=== PATIENT | female | born 1950 | race Caucasian/White ===

== ENCOUNTER → 2021-11-21 | Outpatient (CLI) | payer MEDICARE, OTHER ==
--- NOTE | 2021-11-23 10:11 | MR ---
EXAMINATION TYPE: MR brain wo con DATE OF EXAM: 11/21/2021 COMPARISON: MRI brain 07/11/2018. HISTORY: Weakness, seizure hx since childhood, covid 2-2021 TECHNIQUE: Multiplanar, multisequence imaging of the brain and brainstem is performed without IV cont rast. FINDINGS: Diffusion weighted images demonstrate no evidence of a recent infarct or other diffusion abnormality. There is mild/moderate ventricular and sulcal prominence. No significant white matter changes. Midline structures demonstrate normal morphology. The craniocervical junction appears within normal limits. Normal vascular flow voids are present. Left vertebral artery redemonstrated larger caliber o r dominant appearance Left globe cortical buckle redemonstrated. Paranasal sinuses grossly clear. IMPRESSION: Luxp-ab-oypthaew diffuse cerebral and cerebellar atrophy redemonstrated. No significant c hange from prior MRI.
== END | disposition home or self-care (01) ==
LOC: RADMRIMAIN 13:19
PROVIDERS: ATTEND Pediatrics
DX: G31.9 Degenerative disease of nervous system, unspecified (principal); Z86.16 Personal history of COVID-19
CPT/HCPCS: 70551

== ENCOUNTER → 2021-12-17 | Outpatient (CLI) | payer MEDICARE, OTHER ==
--- NOTE | 2021-12-18 04:38 | MR ---
EXAMINATION TYPE: MR ankle LT wo con DATE OF EXAM: 12/17/2021 COMPARISON: None HISTORY: Abnormal findings on diagnostic imaging Multiplanar multiecho imaging of the left ankle was performed without contrast. There is thickening and deformity of the distal shaft of the fibula related to old healed fracture. T here is deformity of the distal tibia consistent with old intra-articular fracture. No acute fracture seen. There is minimal subcutaneous edema around the ankle. The Achilles tendon is intact. Medial an d lateral flexor tendons of the ankle are intact. The collateral ligaments are intact. There is narro wing of the ankle joint space. IMPRESSION: There is deformity of the distal tibia and fibula related to old healed fractures. 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 Mild subcutaneous edema around the ankle.
--- NOTE | 2021-12-18 04:41 | MR ---
EXAMINATION TYPE: MR foot LT wo con DATE OF EXAM: 12/17/2021 COMPARISON: None HISTORY: Abnormal findings on diagnostic imaging Multiplanar multiecho imaging of the left foot without contrast. The metatarsals are intact there is mild subcutaneous edema around the foot. The toes appear intact. I see no bony destructive process. Tarsal bones are intact. No evidence of an acute fracture. There i s some narrowing of the ankle joint space with spurring. There is mild ankle joint effusion. IMPRESSION: No acute bony abnormality. Posttraumatic osteoarthritis in the ankle joint with small ankle joint eff usion. Mild subcutaneous edema around the forefoot.
== END | disposition home or self-care (01) ==
LOC: RADMRIMAIN 11:34
PROVIDERS: ATTEND Physician Assistant
DX: M19.172 Post-traumatic osteoarthritis, left ankle and foot (principal)

== ENCOUNTER → 2021-12-23 | Outpatient (CLI) | payer MEDICARE, OTHER ==
--- NOTE | 2021-12-23 16:38 | MR ---
MRI left tibia and fibula HISTORY: Previous abnormal exam, R 93.6 Multiplanar multisequence imaging obtained through the legs with attention to the left tibia and fibu la Correlation to MRI left ankle 12/17/2021 The remodeling at the ankle joint is again seen consistent with remote trauma and secondary osteoarth ritis. Bone marrow signal is maintained. Muscular atrophy is present bilaterally. No evident acute fr acture or dislocation. IMPRESSION: Remote posttraumatic changes
== END | disposition home or self-care (01) ==
LOC: RADMRIMAIN 11:35
PROVIDERS: ATTEND Physician Assistant
DX: R93.6 Abnormal findings on diagnostic imaging of limbs (principal); M62.50 Muscle wasting and atrophy, not elsewhere classified, unspecified site; M19.272 Secondary osteoarthritis, left ankle and foot

== ENCOUNTER → 2022-03-31 | Outpatient (CLI) | payer MEDICARE, OTHER ==
[2022-03-31 14:52] LABS: African American GFR (CKD) >90 (>60 ml/min/1.73 sqM); Blood Urea Nitrogen 14 mg/dL (7-17); Non-African American GFR(CKD) >90 (>60 ml/min/1.73 sqM)
--- NOTE | 2022-03-31 19:49 | CT ---
EXAMINATION TYPE: CT urogram wo/w con CT DLP: 4192.30 mGycm, Automated exposure control for dose reduction was used. DATE OF EXAM: 03/31/2022 4:50 PM COMPARISON: None CLINICAL INDICATION:Female, 71 years old with history of R31.1 Micro hematuria, micro hematuria TECHNIQUE: Urogram with imaging of the abdomen and pelvis. Coronal and sagittal reformats were performed. 2D and 3D reconstructions are performed to assist visualization of the urinary tract on a separate workstat ion. Contrast used:70mL mL of Isovue 300 with IV Contrast, Oral contrast used: None. FINDINGS: GENITOURINARY: RIGHT KIDNEY AND URETER: No calculi. No hydronephrosis or hydroureter. No renal mass or other lesions . No urothelial lesions: no filling defect, dilation, stricture or wall thickening. Distal ureter sub optimally evaluated due to lack of excreted IV contrast LEFT KIDNEY AND URETER: No calculi. No hydronephrosis or hydroureter. No renal mass or other lesions. No urothelial lesions: no filling defect, dilation, stricture or wall thickening. Distal ureter subo ptimally evaluated due to lack of excreted IV contrast URINARY BLADDER: No calculi identified. Suboptimal visualization due to lack of excreted IV contrast. REPRODUCTIVE: Degenerating fibroid with calcification present.. ABDOMEN LIVER: Unremarkable. GALLBLADDER AND BILE DUCTS: Unremarkable PANCREAS: Unremarkable. SPLEEN: Unremarkable. ADRENAL GLANDS: Unremarkable. STOMACH AND BOWEL: Appendix is normal. There is redundant sigmoid colon. No evidence of bowel obstruc tion. Small hiatal hernia is present. PERITONEUM: No evidence of pneumoperitoneum, free fluid, or adenopathy. VASCULATURE: Scattered atherosclerosis of the arterial vasculature. MUSCULOSKELETAL: Multilevel degenerative changes are present throughout the thoracolumbar spine. SOFT TISSUE/ABDOMINAL WALL: No significant abnormality. LOWER CHEST: Multiple calcifications are seen within the breasts bilaterally. There is coronary arter y atherosclerosis as well as aortic valve with the calcifications. Mitral valve annular calcification s are also present. IMPRESSION: 1. No evidence of urolithiasis or renal/urothelial neoplasm. 2. No evidence of renal calculi. 3. Small hiatal hernia. 4. Colonic diverticulosis
== END | disposition home or self-care (01) ==
LOC: RADCTMAIN 14:07 → EEVIPCON 15:00
PROVIDERS: ATTEND Urology
DX: K44.9 Diaphragmatic hernia without obstruction or gangrene (principal); K57.30 Diverticulosis of large intestine without perforation or abscess without bleeding
CPT/HCPCS: 82565; 84520; 74178; 36415; 74400; Q9967

== ENCOUNTER 2022-08-05 08:17 | Day surgery (SDC) | payer MEDICARE, OTHER ==
[2022-08-04 10:02] VITALS: BMI 33.6
--- NOTE | 2022-08-04 13:56 | P.GSHP ---
History of Present Illness H&P Date: 08/04/22 71 yo female, mentally handicapped who has peristent dysuri and hematuria. SHe comes for a cysto with retrograde pyeograms. Her ct scan was nl - Review of Systems ROS unobtainable: Reports: due to mental status Past Medical History Past Medical History: GERD/Reflux, Osteoarthritis (OA), Seizure Disorder Additional Past Medical History / Comment(s): last seizure 07/16/2022., transfers with gait belt and 2 person assist., wears brace right foot., incontinent of urine., red spot under left eye., assist with food set-up., current UTI., resides in her own home with 24 hour care., pt has legal guardian- Claire Painting (sister # [phone]) History of Any Multi-Drug Resistant Organisms: None Reported Past Surgical History: No Surgical Hx Reported Past Anesthesia/Blood Transfusion Reactions: Family History of Problems w/ Anesthesia Additional Past Anesthesia/Blood Transfusion Reaction / Comment(s): sister and her sisters daughter have "extreme" difficulty waking up after receiving morphine. pt has never received anesthesia per sister. Past Psychological History: Depression Smoking Status: Never smoker Past Alcohol Use History: None Reported Past Drug Use History: None Reported - Past Family History Mother Additional Family Medical History / Comment(s): MOther of complications from colon polyp removal Father Family Medical History: Chest Pain / Angina, Diabetes Mellitus, Hyperlipidemia, Myocardial Infarction ([place]) Medications and Allergies Home Medications Medication Instructions Recorded Confirmed Type Aspirin EC [Ecotrin Low Dose] 81 mg PO DAILY 07/10/18 08/04/22 History Cetirizine HCl [Zyrtec] 10 mg PO HS 07/10/18 08/04/22 History Docusate [Colace] 100 mg PO HS 07/10/18 08/04/22 History Eslicarbazepine Acetate [Aptiom] 300 mg PO DAILY 07/10/18 08/04/22 History Sodium Chloride Tab 1 gm PO HS 07/10/18 08/04/22 History lamoTRIgine [LaMICtal] 25 mg PO BID 07/10/18 08/04/22 History lamoTRIgine [LaMICtal] 200 mg PO BID 07/10/18 08/04/22 History polyethylene glycoL 3350 [Miralax] 17 gm PO Q72H 07/10/18 08/04/22 History Cephalexin [Keflex] 500 mg PO Q12HR 08/04/22 08/04/22 History FLUoxetine HCL [PROzac] 10 mg PO DAILY 08/04/22 08/04/22 History Latanoprost [Latanoprost 0.005%] 1 drop BOTH EYES HS 08/04/22 08/04/22 History Multivitamins, Thera [Multivitamin 1 tab PO DAILY 08/04/22 08/04/22 History (formulary)] Omeprazole [PriLOSEC] 20 mg PO AC-BRKFST 08/04/22 08/04/22 History levETIRAcetam [Keppra] 1,500 mg PO BID 08/04/22 08/04/22 History levETIRAcetam [Keppra] 250 mg PO BID 08/04/22 08/04/22 History Allergies Allergy/AdvReac Type Severity Reaction Status Date / Time lacosamide [From Vimpat] Allergy Unknown Verified 08/04/22 09:36 phenytoin [From Dilantin] Allergy Unknown Verified 08/04/22 09:36 sulfamethoxazole Allergy Unknown Verified 08/04/22 09:36 [From Bactrim] trimethoprim [From Bactrim] Allergy Unknown Verified 08/04/22 09:36 Results - Imaging CT scan - abdomen: report reviewed, image reviewed CT scan - pelvis: report reviewed, image reviewed Assessment and Plan Assessment: Impression; persistent dysuria with intermittent hematuria. Plan cysto with bilateral retrograde pyelograms.
[~2022-08-05 08:17] MED LIST: AMPICILLIN 1,000 MG in SODIUM CHLORIDE 0.9% 50 ML IVPB PRN; DEXAMETHASONE SOD PHOSPHATE 4 MG/ML 1 ML VIAL IV ONE; GENTAMICIN 100 MG in SODIUM CHLORIDE 0.9% 100 ML IVPB PRN; HYDROmorphone 0.5 MG/0.5 ML SYRINGE IVP PRN; LACTATED RINGERS 1,000 ML IV SCH; MIDAZOLAM 2 MG/2 ML VIAL IV PRN; ONDANSETRON 4 MG/2 ML VIAL IVP ONE
[2022-08-05 09:01] LABS: Glucose,Whole Blood 107 mg/dL (70-110)
[2022-08-05] MEDS ORDERED: MIDAZOLAM 2 MG/2 ML VIAL ONE (10:35)
[2022-08-05] MEDS ORDERED: PROPOFOL 10 MG/ML 20 ML VIAL IV ONE (10:35)
[2022-08-05] MEDS ORDERED: fentaNYL (PF) 50 MCG/ML 2 ML AMP ONE (10:35)
[2022-08-05] MEDS ORDERED: IOPAMIDOL-370 50ML BTL IRRIGATION ONE ×2 (10:38→11:00)
--- NOTE | 2022-08-05 11:15 | P.OP ---
Date of Procedure: 08/05/22 Preoperative Diagnosis: Chronic dysuria and hematuria Postoperative Diagnosis: Same, chronic cystitis Procedure(s) Performed: Cystoscopy with bilateral retrograde pyelograms Anesthesia: MAC Surgeon: Michael Pete Estimated Blood Loss (ml): 0 Pathology: none sent Condition: stable Disposition: PACU Indications for Procedure: Patient is 71. She is mentally handicapped and long care facility. She has chronic dysuria according to the extended care facility staff. She has had re current infections. She declined cystoscopy in the office. She comes for cystoscopy retrograde pyelograms. Computed tomography scan is normal Description of Procedure: Patient brought to the operating suite. She is given IV sedation. She's given previous antibiotics. She is prepped and draped sterilely. Cystoscopy Foroblique lens and 21-Cypriot sheath identifies a normal urethra. The bladder wall shows chronic cystitis cystica. There is no tumor or stone. Retrograde pyelograms performed bilaterally with a cone-tipped catheter and Isovue-M 302. The ureters of normal course and caliber without filling defect electing system abnormality or extrinsic compression. The draining nicely. The bladder strain the patient's awake and returned recovery in good condition Impression dysuria secondary to chronic cystitis. The plan is to place her on trimethoprim 100 mg daily for at least 6 weeks to see if this helps her out."
--- NOTE | 2022-08-05 11:24 | FL ---
EXAMINATION TYPE: FL guidance operating room DATE OF EXAM: 08/05/2022 HISTORY: Fluoroscopy time 30 seconds of fluoroscopy provided. IMPRESSION: 1. Fluoroscopy time.
[2022-08-05 11:38] VITALS: TEMP 97
[2022-08-05 12:53] VITALS: BP 122/76; RESP 18
[2022-08-05 13:36] VITALS: PULSE 78
== END 2022-08-05 13:36 ==
LOC: OR 08:17
PROVIDERS: ATTEND Urology
DX: N30.21 Other chronic cystitis with hematuria (principal); F32.A Depression, unspecified; G40.909 Epilepsy, unspecified, not intractable, without status epilepticus; K21.9 Gastro-esophageal reflux disease without esophagitis; M19.90 Unspecified osteoarthritis, unspecified site; N30.81 Other cystitis with hematuria; Z79.82 Long term (current) use of aspirin; Z82.49 Family history of ischemic heart disease and other diseases of the circulatory system; Z83.3 Family history of diabetes mellitus; Z83.49 Family history of other endocrine, nutritional and metabolic diseases; Z87.440 Personal history of urinary (tract) infections; Z88.1 Allergy status to other antibiotic agents; Z88.2 Allergy status to sulfonamides
CPT/HCPCS: 52005; 74420; C1758; J2250; J1100; J2405; J3010; J1580; J0290; J2704; Q9967

== ENCOUNTER 2024-02-21 15:02 | Emergency (ER) | payer MEDICARE, OTHER ==
[2024-02-21 15:17] VITALS: RESP 18
--- NOTE | 2024-02-21 15:36 | ED ---
Fall HPI - General Chief Complaint: Fall Stated Complaint: Fall-Neck Pain Time Seen by Provider: 02/21/24 15:20 Source: patient, RN/MD, EMS, RN notes reviewed Mode of arrival: EMS - History of Present Illness Initial Comments: This is a 73-year-old female presents emergency department via EMS for chief complaint of a fall. Patient is mentally disabled and a poor historian, ther efor a majority of history is obtained from nursing staff. Patient presented to the EC with a blanket wrapped around her neck due to EMS stating that the patient's anatomy was not able to put a c-collar in place. It was noted that patient was in a wheelchair swing outside when the swing broke resulting in the patient's wheelchair falling forward with her strapped into the chair. Staff at the time of the fall deny loss of consciousness. Currently patient is endorsing neck pain. Patient is not on any blood thinners. - Related Data Home Medications Medication Instructions Recorded Confirmed Cetirizine HCl [Zyrtec] 10 mg PO BID@08,199907/10/18 02/21/24 Eslicarbazepine Acetate [Aptiom] 600 mg PO DAILY@79907/10/18 02/21/24 Sodium Chloride Tab 1 gm PO DAILY@79907/10/18 02/21/24 lamoTRIgine [LaMICtal] 25 mg PO BID@08,199907/10/18 02/21/24 lamoTRIgine [LaMICtal] 200 mg PO BID@08,199907/10/18 02/21/24 polyethylene glycoL 3350 [Miralax] 17 gm PO MOWE@199907/10/18 02/21/24 Latanoprost [Latanoprost 0.005%] 1 drop BOTH EYES HS@199908/04/22 02/21/24 Omeprazole [PriLOSEC] 20 mg PO DAILY@79908/04/22 02/21/24 levETIRAcetam [Keppra] 1,500 mg PO DAILY@0808/04/22 02/21/24 levETIRAcetam [Keppra] 250 mg PO HS@199908/04/22 02/21/24 Ammonium Lactate Cream [Lac-Hydrin 1 applic TOPICAL BID@08,199902/21/24 02/21/24 12% Cream] Ascorbic Acid [Vitamin C] 1,000 mg PO BID@799,199902/21/24 02/21/24 Chlorthalidone 100 mg PO DAILY@79902/21/24 02/21/24 FLUoxetine HCL [PROzac] 20 mg PO DAILY@79902/21/24 02/21/24 Furosemide [Lasix] 20 mg PO DAILY@79902/21/24 02/21/24 Gummi Bear Multivitamin/Mineral 2 tab PO DAILY@79902/21/24 02/21/24 Chew Levothyroxine Sodium [Synthroid] 25 mcg PO DAILY@79902/21/24 02/21/24 Midazolam [Nayzilam] 1 spray NASAL ONCE PRN 02/21/24 02/21/24 Oseltamivir Phosphate 75 mg PO DAILY@79902/21/24 02/21/24 Phenyleph/Mineral Oil/Petrolat 1 applic RECTAL QID PRN 02/21/24 02/21/24 [Preparation H Ointment] Potassium Chloride ER [K-Dur 10] 10 meq PO DAILY@79902/21/24 02/21/24 Sennosides/Docusate Sodium [Senna 2 cap PO SUTUTHSA@199902/21/24 02/21/24 Plus 8.6-50 mg Softgel] Spironolactone [Aldactone] 50 mg PO BID@08,199902/21/24 02/21/24 Triamcinolone 0.1% Cream [Kenalog 1 applicatio TOPICAL BID@799,199902/21/24 02/21/24 0.1% Cream] Trimethoprim [Trimpex] 100 mg PO DAILY@79902/21/24 02/21/24 Zinc Gluconate [Zinc] 50 mg PO DAILY@79902/21/24 02/21/24 guaiFENesin [guaiFENesin Oral 200 mg PO Q4H PRN 02/21/24 02/21/24 Solution] hydrOXYzine HCL [Atarax] 25 mg PO DAILY@79902/21/24 02/21/24 levETIRAcetam [Keppra] 750 mg PO HS@199902/21/24 02/21/24 Allergies Allergy/AdvReac Type Severity Reaction Status Date / Time lacosamide [From Vimpat] Allergy Unknown Verified 02/21/24 18:38 phenytoin [From Dilantin] Allergy Unknown Verified 02/21/24 18:38 sulfamethoxazole Allergy Unknown Verified 02/21/24 18:38 [From Bactrim] trimethoprim [From Bactrim] Allergy Unknown Verified 02/21/24 18:38 Review of Systems ROS Statement: Those systems with pertinent positive or pertinent negative responses have been documented in the HPI. ROS Other: All systems not noted in ROS Statement are negative. Past Medical History Past Medical History: GERD/Reflux, Osteoarthritis (OA), Seizure Disorder Additional Past Medical History / Comment(s): last seizure 07/16/2022., transfers with gait belt and 2 person assist., wears brace right foot., incontinent of urine., red spot under left eye., assist with food set-up., current UTI., resides in her own home with 24 hour care., pt has legal guardian- Claire Painting (sister # [phone]) History of Any Multi-Drug Resistant Organisms: None Reported Past Surgical History: No Surgical Hx Reported Past Anesthesia/Blood Transfusion Reactions: Family History of Problems w/ Anesthesia Additional Past Anesthesia/Blood Transfusion Reaction / Comment(s): sister and her sisters daughter have "extreme" difficulty waking up after receiving morphine. pt has never received anesthesia per sister. Past Psychological History: Depression Smoking Status: Never smoker Past Alcohol Use History: None Reported Past Drug Use History: None Reported - Past Family History Mother Additional Family Medical History / Comment(s): MOther of complications from colon polyp removal Father Family Medical History: Chest Pain / Angina, Diabetes Mellitus, Hyperlipidemia, Myocardial Infarction ([place]) General Exam Limitations: altered mental status, physical limitation General appearance: alert Head exam: Present: normocephalic Eye exam: Present: normal appearance, PERRL, EOMI. Absent: scleral icterus, conjunctival injection, periorbital swelling ENT exam: Present: normal exam, normal oropharynx, mucous membranes moist Expanded Mouth exam: Present: other (superior frontal abrasion to gum, dentures not in place) Neck exam: Present: tenderness, full ROM Respiratory exam: Present: normal lung sounds bilaterally. Absent: respiratory distress, wheezes, rales, rhonchi, stridor Cardiovascular Exam: Present: regular rate, normal rhythm, normal heart sounds. Absent: systolic murmur, diastolic murmur, rubs, gallop, clicks GI/Abdominal exam: Present: soft, normal bowel sounds. Absent: distended, tenderness, guarding, rebound, rigid Extremities exam: Present: normal inspection, full ROM, normal capillary refill. Absent: tenderness, pedal edema, joint swelling, calf tenderness Neurological exam: Present: alert, other (unable to assess due to mental disability, family states that patient is at baseline) Skin exam: Present: warm, dry, intact, normal color. Absent: rash Course Vital Signs 02/21/24 02/21/24 02/21/24 15:10 18:06 19:04 Temperature 97.6 F 98.4 F Pulse Rate 100 96 95 Respiratory 18 18 18 Rate Blood Pressure 124/77 134/79 124/79 O2 Sat by Pulse 98 95 96 Oximetry Medical Decision Making - Medical Decision Making Was pt. sent in by a medical professional or institution (, PA, SMT MACHINE OPERATOR, urgent care, hospital, or retirement...) When possible be specific @ -patient was sent by nursing facility due to a fall from a wheelchair swing and injury to the neck. Did you speak to anyone other than the patient for history (EMS, parent, family, police, friend...)? What history was obtained from this source @ -Due to the patient's family patient's caregiver states that the patient did not lose consciousness at the time of fall and patient is not on any blood thinners. Did you review nursing and triage notes (agree or disagree)? Why? @ -I reviewed and agree with nursing and triage notes Were old charts reviewed (outside hosp., previous admission, EMS record, old EKG, old radiological studies, urgent care reports/EKG's, retirement records)? Report findings @ -No old charts were reviewed Differential Diagnosis (chest pain, altered mental status, abdominal pain women, abdominal pain men, vaginal bleeding, weakness, fever, dyspnea, syncope, headache, dizziness, GI bleed, back pain, seizure, CVA, palpatations, mental health, musculoskeletal)? @ -abrasion, Contusion, intracranial hemorrhage, laceration, fracture, this list is not all inclusive. EKG interpreted by me (3pts min.). @ -none X-rays interpreted by me (1pt min.). @ -None done CT interpreted by me (1pt min.). @ -CT of the brain and C-spine without contrast no acute intracranial process or cervical spine fracture. CT of the pelvis no evidence of fracture, large amount of stool in the rectum and sigmoid colon, no acute pelvic process. CT of the chest no evidence for acute thoracic process, no fracture. U/S interpreted by me (1pt. min.). @ -None done What testing was considered but not performed or refused? (CT, X-rays, U/S, labs)? Why? @ -None What meds were considered but not given or refused? Why? @ -Patient was offered pain medication but she has declined at this time. Did you discuss the management of the patient with other professionals (professionals i.e. , PA, SMT MACHINE OPERATOR, lab, RT, psych nurse, protective services social worker, box maker, teacher, loan officer assistant, trimming caser)? Give summary @ -No Was smoking cessation discussed for >3mins.? @ -No Was critical care preformed (if so, how long)? @ -No Were there social determinants of health that impacted care today? How? (Homelessness, low income, unemployed, alcoholism, drug addiction, transportation, low edu. Level, literacy, decrease access to med. care, custodial, rehab)? @ -No Was there de-escalation of care discussed even if they declined (Discuss DNR or withdrawal of care, Hospice)? DNR status @ -No What co-morbidities impacted this encounter? (DM, HTN, Smoking, COPD, CAD, Cancer, CVA, ARF, Chemo, Hep., AIDS, mental health diagnosis, sleep apnea, morbid obesity)? @ -None Was patient admitted / discharged? Hospital course, mention meds given and route, prescriptions, significant lab abnormalities, going to OR and other pertinent info. @ -Discharged. 73-year-old female with a fall. On examination patient is noted to have bleeding from the mouth and noted abrasion to the superior gums. Patient has arrived to the emergency department with her neck wrapped in a blanket, c-collar was unable to be placed due to the patient's anatomy. Due to patient being a poor historian and unclear of extent of injury and fall evaluated via broad imaging including CT of the brain, C-spine, chest, and pelvis. CT imaging unremarkable. Patient was provided with a dose of tetanus vaccine in the emergency department. All questions answered at bedside and strict return parameters discussed with the patient's sister, who is the patient's power of medication administration professional, at bedside. Discussed with Dr. Chilel Undiagnosed new problem with uncertain prognosis? @ -No Drug Therapy requiring intensive monitoring for toxicity (Heparin, Nitro, Insulin, Cardizem)? @ -No Were any procedures done? @ -No Diagnosis/symptom? @ -fall, intraoral laceration Acute, or Chronic, or Acute on Chronic? @ -Acute Uncomplicated (without systemic symptoms) or Complicated (systemic symptoms)? @ -uncomplicated Side effects of treatment? @ -No Exacerbation, Progression, or Severe Exacerbation? @ -No Poses a threat to life or bodily function? How? (Chest pain, [place], [place], pneumonia, PE, COPD, DKA, ARF, appy, cholecystitis, CVA, Diverticulitis, Homicidal, Suicidal, threat to staff... and all critical care pts) @ -No Disposition Clinical Impression: Fall, Neck pain Disposition: HOME SELF-CARE Condition: Good Instructions (If sedation given, give patient instructions): Fall Prevention for Older Adults (ED) Additional Instructions: Return the emergency department if symptoms worsen or not improve. Is patient prescribed a controlled substance at d/c from ED?: No Referrals: Lele Culp MD [REFERRING] - 1-2 days Time of Disposition: 18:58
--- NOTE | 2024-02-21 17:12 | CT ---
EXAMINATION TYPE: CT brain cspine wo con CT DLP: 2953.7 mGycm, Automated exposure control for dose reduction was used. DATE OF EXAM: 02/21/2024 4:45 PM COMPARISON: None. CLINICAL INDICATION:Female, 73 years old with history of fall, pain; pain after fall TECHNIQUE: Brain: Multiple axial CT images of the brain were obtained without IV contrast. Cspine: Axial CT images from the skull base to the inferior aspect of T2 we obtained without intraven ous contrast. Coronal and sagittal reformatted images were also reviewed. . FINDINGS: Brain: Extra-axial spaces: No abnormal extra-axial fluid collections. Ventricular system: Within normal limits Cerebral parenchyma: No acute intraparenchymal hemorrhage or mass effect. The cesar-white junction is well differentiated. Cerebellum: Unremarkable. Mass effect: No evidence of midline shift. Intracranial vasculature: unremarkable Soft tissues: Normal. Calvarium/osseous structures: No depressed skull fracture. Paranasal sinuses and mastoid air cells: Clear. Visualized orbits: Postsurgical changes to the left globe. Right aphakia. Cervical spine: Fracture: None. Osseous structures: Multilevel degenerative disc disease changes with endplate spurring and disc oste ophyte complex's. Vertebral alignment: Within normal limits. Spinal canal/Neural Foramina: No evidence of significant spinal canal narrowing. No evidence for sign ificant neural foraminal stenosis. Neck soft tissues: Prevertebral soft tissues are within normal limits. Other: The airway is patent. The lung apices are clear. IMPRESSION: 1. No acute intracranial process. 2. No evidence of cervical spine fracture. 3. Mild multilevel degenerative disc disease.
--- NOTE | 2024-02-21 17:28 | CT ---
EXAMINATION TYPE: CT pelvis wo con CT DLP: 2953.7 mGycm, Automated exposure control for dose reduction was used. DATE OF EXAM: 02/21/2024 4:45 PM COMPARISON: None CLINICAL INDICATION:Female, 73 years old with history of fall, pain; pain after fall TECHNIQUE: Axial CT pelvis wo con;Sagittal and coronal reformats were created on a separate workstat ion. Contrast used: mL of , (none if empty) Oral contrast used: without Oral Contrast (none if empty) FINDINGS: BLADDER: Unremarkable REPRODUCTIVE: Calcified fibroid in the left uterus. ABDOMEN & PELVIS STOMACH AND BOWEL: No evidence of bowel obstruction. Large amount of stool within the rectum and sigm oid colon. PERITONEUM/RETROPERITONEUM: No evidence of pneumoperitoneum or free fluid. VASCULATURE: No evidence of aortic aneurysm. MUSCULOSKELETAL: No acute osseous abnormalities. There is degeneration changes at the sacroiliac join ts and throughout the lower lumbar spine. No evidence for significant spinal canal stenosis. LYMPH NODES: No gross evidence for lymphadenopathy. SOFT TISSUE/ABDOMINAL WALL: Unremarkable IMPRESSION: 1. No evidence of fracture. 2. Moderate large amount stool in the rectum and sigmoid colon. 3. No acute pelvic process..
[2024-02-21] MEDS: DIPH,PERTUS(ACELL)TETVAC-LF 0.5 ML VIAL IM ONE (18:16)
--- NOTE | 2024-02-21 18:55 | CT ---
EXAMINATION TYPE: CT chest wo con CT DLP: 2953.7 mGycm, Automated exposure control for dose reduction was used. DATE OF EXAM: 02/21/2024 4:45 PM COMPARISON: None CLINICAL INDICATION:Female, 73 years old with history of fall, pain; PHH, pain after fall TECHNIQUE: Multiple axial images were obtained through the chest. Sagittal and coronal reformats were created for review. Contrast used: mL of (None if empty) Oral contrast used: (None if empty) FINDINGS: LUNGS/ PLEURA: No focal consolidation, pneumothorax or pleural effusion. Streaky atelectasis in the l fredy bases. AIRWAY: Patent and unremarkable. HEART: Size within normal limits. MEDIASTINUM: No gross evidence of adenopathy. VASCULATURE: No aortic aneurysm. MUSCULOSKELETAL: Moderate disc degeneration changes are present throughout the thoracolumbar spine. M oderate degeneration changes of the shoulders with joint space narrowing osteophyte formation. SOFT TISSUES/LYMPH NODES: Unremarkable. LOWER NECK: No significant findings. UPPER ABDOMEN: No significant findings. IMPRESSION: 1. No evidence for acute thoracic process. 2. No evidence for fracture. 3. Moderate multilevel degeneration changes of the spine.
[2024-02-21 19:12] VITALS: BP 124/79; PULSE 95; TEMP 98.4
== END 2024-02-21 19:13 | disposition home or self-care (01) ==
LOC: EC 15:02
DX: S01.512A Laceration without foreign body of oral cavity, initial encounter (principal); M54.2 Cervicalgia; Z88.1 Allergy status to other antibiotic agents; Z88.2 Allergy status to sulfonamides; Z23 Encounter for immunization; W05.0XXA Fall from non-moving wheelchair, initial encounter
CPT/HCPCS: 70450; 71250; 72125; 72192; 90471; 90715; 99283

== ENCOUNTER 2024-06-16 10:57 | Inpatient (IN) | payer MEDICARE, OTHER ==
[2024-06-16 13:04] LABS: Basophils % (A) 0 %; Eosinophils # (A) 0.1 k/uL (0-0.7); Eosinophils % (A) 1 %; HCT 30.8 % (34.0-46.0); HGB 10.1 gm/dL (11.4-16.0); Lymphocytes # (A) 0.5 k/uL (1.0-4.8); Lymphocytes % (A) 5 %; MCH 28.3 pg (25.0-35.0); MCHC 32.8 g/dL (31.0-37.0); Mean Platelet Volume 7.4; Monocytes # (A) 0.2 k/uL (0-1.0); Monocytes % (A) 3 %; Neutrophils # (A) 8.4 k/uL (1.3-7.7); Neutrophils % (A) 91 %; Platelet Count 202 k/uL (150-450); RBC 3.58 m/uL (3.80-5.40); RDW 12.9 % (11.5-15.5); WBC 9.2 k/uL (3.8-10.6)
[2024-06-16] MEDS ORDERED: ACETAMINOPHEN TAB 325 MG TAB PO PRN (13:12)
[2024-06-16] MEDS ORDERED: NALOXONE 0.4 MG/ML 1 ML VIAL IV PRN (13:12)
--- NOTE | 2024-06-16 13:12 | ED ---
Altered Mental Status HPI - General Chief Complaint: Altered Mental Status Stated Complaint: AMS Time Seen by Provider: 06/16/24 11:05 Source: EMS Mode of arrival: EMS Limitations: altered mental status - History of Present Illness Initial Comments: 73-year-old female with past medical history of intellectual delay, seizure disorder, congestive heart failure who wears 3 to 4 L at night who presents emergency department from [facility]. Patient has had decreased appetite and weakness over the past couple of days. She presented to the hospital with her AFC worker. Laboratory studies were conducted. Patient had a potassium of 3.1. BUN of 26.5 and a creatinine of 1.4. Patient has normal kidney function at baseline so this was new. Urine showed 4+ bacteria. Patient did have 102.4 temp. The empirically covered her with 2 g of Rocephin, vancomycin and Zosyn. She received a gram of Ofirmev. No IV fluids were administered as she does have a history of congestive heart failure and the chest x-ray read some pulmonary edema. BNP 439. Patient went over for CT of her brain, chest and abdomen. Chest did not read any pulmonary edema. Brain was negative. CT of the abdomen demonstrated a left-sided ureteral stone measuring 7 mm in the distal ureter. Due to UTI, sepsis and septic stone the patient was transferred to our facility. Patient cannot provide much history. Sister is at bedside who is her guardian. - Related Data Home Medications Medication Instructions Recorded Confirmed Cetirizine HCl [Zyrtec] 10 mg PO HS@199907/10/18 06/16/24 Eslicarbazepine Acetate [Aptiom] 600 mg PO DAILY@0807/10/18 06/16/24 Sodium Chloride Tab 1 gm PO DAILY@0807/10/18 06/16/24 lamoTRIgine [LaMICtal] 25 mg PO BID@07/10/18 06/16/24 lamoTRIgine [LaMICtal] 200 mg PO BID@07/10/18 06/16/24 polyethylene glycoL 3350 [Miralax] 17 gm PO MOWE@199907/10/18 06/16/24 Latanoprost [Latanoprost 0.005%] 1 drop BOTH EYES HS@199908/04/22 06/16/24 Omeprazole [PriLOSEC] 20 mg PO DAILY@79908/04/22 06/16/24 levETIRAcetam [Keppra] 1,500 mg PO DAILY@79908/04/22 06/16/24 levETIRAcetam [Keppra] 250 mg PO HS@199908/04/22 06/16/24 Ammonium Lactate Cream [Lac-Hydrin 1 applic TOPICAL BID@799,199902/21/24 06/16/24 12% Cream] Ascorbic Acid [Vitamin C] 1,000 mg PO BID@799,199902/21/24 06/16/24 Chlorthalidone 100 mg PO DAILY@79902/21/24 06/16/24 FLUoxetine HCL [PROzac] 20 mg PO DAILY@79902/21/24 06/16/24 Furosemide [Lasix] 20 mg PO DAILY@79902/21/24 06/16/24 Gummi Bear Multivitamin/Mineral 2 tab PO DAILY@79902/21/24 06/16/24 Chew Levothyroxine Sodium [Synthroid] 25 mcg PO DAILY@79902/21/24 06/16/24 Midazolam [Nayzilam] 1 spray NASAL ONCE PRN 02/21/24 06/16/24 Phenyleph/Mineral Oil/Petrolat 1 applic RECTAL QID PRN 02/21/24 06/16/24 [Preparation H Ointment] Potassium Chloride ER [K-Dur 10] 10 meq PO DAILY@79902/21/24 06/16/24 Spironolactone [Aldactone] 50 mg PO BID@799,199902/21/24 06/16/24 Triamcinolone 0.1% Cream [Kenalog 1 applicatio TOPICAL BID@799,199902/21/24 06/16/24 0.1% Cream] Trimethoprim [Trimpex] 100 mg PO DAILY@79902/21/24 06/16/24 Zinc Gluconate [Zinc] 50 mg PO DAILY@79902/21/24 06/16/24 hydrOXYzine HCL [Atarax] 25 mg PO DAILY@79902/21/24 06/16/24 levETIRAcetam [Keppra] 750 mg PO HS@199902/21/24 06/16/24 Nystatin 100,000 Unit/gm Powd 1 applic TOPICAL BID@0800,199906/16/24 06/16/24 [Mycostatin Powder] Ondansetron [Zofran] 4 mg PO Q8HR PRN 06/16/24 06/16/24 Sennosides/Docusate Sodium [Senna 2 tab PO SUTUTHSA@199906/16/24 06/16/24 Plus 8.6-50 mg Tablet] bisacodyL [Dulcolax] 10 mg RECTAL DAILY PRN 06/16/24 06/16/24 guaiFENesin SYRUP 100MG/5ML 200 mg PO Q4H PRN 06/16/24 06/16/24 [Robitussin] metFORMIN HCL ER [Glucophage XR] 500 mg PO DAILY@1700 06/16/24 06/16/24 metOLazone [Zaroxolyn] 5 mg PO DAILY@0630 06/16/24 06/16/24 Allergies Allergy/AdvReac Type Severity Reaction Status Date / Time lacosamide [From Vimpat] Allergy Unknown Verified 06/16/24 14:04 phenytoin [From Dilantin] Allergy Unknown Verified 06/16/24 14:04 sulfamethoxazole Allergy Unknown Verified 06/16/24 14:04 [From Bactrim] trimethoprim [From Bactrim] Allergy Unknown Verified 06/16/24 14:04 Review of Systems ROS Statement: Those systems with pertinent positive or pertinent negative responses have been documented in the HPI. ROS Other: All systems not noted in ROS Statement are negative. Past Medical History Past Medical History: Heart Failure, COPD, GERD/Reflux, Hyperlipidemia, Osteoarthritis (OA), Pneumonia, Seizure Disorder Additional Past Medical History / Comment(s): Intellectual delay - lower spectrum IQ per sister and A&OX1, last seizure 07/16/2022, wheelchair bound and transfers with gait belt and 2 person assist, wears brace right foot, inc ontinent of urine, Dysphagia - assist with food set-up, current UTI(05/2024) cataracts, resides in her own home with 24 hour care, legal guardian- Claire Painting (sister # [phone]) History of Any Multi-Drug Resistant Organisms: None Reported Past Surgical History: Orthopedic Surgery Past Anesthesia/Blood Transfusion Reactions: Family History of Problems w/ Anesthesia Additional Past Anesthesia/Blood Transfusion Reaction / Comment(s): sister and her sisters daughter have "extreme" difficulty waking up after receiving morphine. pt has never received anesthesia per sister. Past Psychological History: Depression Smoking Status: Never smoker Past Alcohol Use History: None Reported Past Drug Use History: None Reported - Past Family History Mother Additional Family Medical History / Comment(s): MOther of complications from colon polyp removal Father Family Medical History: Chest Pain / Angina, Diabetes Mellitus, Hyperlipidemia, Myocardial Infarction ([place]) General Exam Limitations: altered mental status General appearance: alert, in no apparent distress Head exam: Present: atraumatic, normocephalic, normal inspection Eye exam: Present: normal appearance, PERRL, EOMI. Absent: scleral icterus, conjunctival injection, periorbital swelling ENT exam: Present: normal exam, mucous membranes moist Neck exam: Present: normal inspection. Absent: tenderness, meningismus, lymphadenopathy Respiratory exam: Present: normal lung sounds bilaterally. Absent: respiratory distress, wheezes, rales, rhonchi, stridor Cardiovascular Exam: Present: regular rate, normal rhythm, normal heart sounds. Absent: systolic murmur, diastolic murmur, rubs, gallop, clicks GI/Abdominal exam: Present: soft, normal bowel sounds. Absent: distended, tenderness, guarding, rebound, rigid Extremities exam: Present: normal inspection, full ROM, normal capillary refill. Absent: tenderness, pedal edema, joint swelling, calf tenderness Back exam: Present: normal inspection Neurological exam: Present: alert, oriented X3, CN II-XII intact Psychiatric exam: Present: normal affect, normal mood Skin exam: Present: warm, dry, intact, normal color. Absent: rash Course Vital Signs 06/16/24 06/16/24 06/16/24 11:01 13:32 13:52 Temperature 98.8 F 98.9 F Pulse Rate 101 H 101 H Pulse Rate [ 98 Pulse Oximetery ] Respiratory 18 18 16 Rate Blood Pressure 122/67 112/63 Blood Pressure 116/59 [Right Arm Sitting] O2 Sat by Pulse 96 99 96 Oximetry Medical Decision Making - Medical Decision Making Was pt. sent in by a medical professional or institution (, PA, EXPORT CLERK, urgent care, hospital, or penitentiary...) When possible be specific @ -Patient sent in from [facility] Did you speak to anyone other than the patient for history (EMS, parent, family, police, friend...)? What history was obtained from this source @ -Spoke with the transferring physician and sister about the patient's history Did you review nursing and triage notes (agree or disagree)? Why? @ -I reviewed and agree with nursing and triage notes Were old charts reviewed (outside hosp., previous admission, EMS record, old EKG, old radiological studies, urgent care reports/EKG's, penitentiary records)? Report findings @ -I reviewed the ED notes from [facility] which were completed today Differential Diagnosis (chest pain, altered mental status, abdominal pain women, abdominal pain men, vaginal bleeding, weakness, fever, dyspnea, syncope, headache, dizziness, GI bleed, back pain, seizure, CVA, palpatations, mental h ealth, musculoskeletal)? @ -Differential Fever: Pneumonia, viral URI, endocarditis, myocarditis, pericarditis, otitis, sinusitis, peritonsillar Abscess, retropharyngeal Abscess, epiglottitis, perito nitis, appendicitis, Wendy cystitis, diverticulitis, hepatitis, colitis, UTI, PID, TOA, pyelonephritis, prostatitis, epididymitis, meningitis, encephalitis, pulmonary embolism, CVA, thyroid storm, pancreatitis, adrenal crisis, cavernous sinus thrombosis, this is not meant to be an all-inclusive list. EKG interpreted by me (3pts min.). @ -Yes and demonstrates sinus tachycardia with a rate of 100. NH interval 131. QRS 85. QTc of 397. No acute ST segment elevations or depressions X-rays interpreted by me (1pt min.). @ -Yes and demonstrates some pulmonary vascular congestion CT interpreted by me (1pt min.). @ -Yes and demonstrates a left-sided ureteral stone U/S interpreted by me (1pt. min.). @ -None done What testing was considered but not performed or refused? (CT, X-rays, U/S, lab s)? Why? @ -None What meds were considered but not given or refused? Why? @ -Intravenous fluids were considered however patient does have a history of CHF and chest x-ray demonstrates possible fluid overload Did you discuss the management of the patient with other professionals (professionals i.e. , PA, EXPORT CLERK, lab, RT, psych nurse, manager social, biztalk administrator, teacher, commercial account officer, continuous pillowcase cutter)? Give summary @ -Spoke with Dr. Pete from urology. Spoke with Dr. Rosen the hospitalist Was smoking cessation discussed for >3mins.? @ -No Was critical care preformed (if so, how long)? @ -No Were there social determinants of health that impacted care today? How? (Homelessness, low income, unemployed, alcoholism, drug addiction, transportation, low edu. Level, literacy, decrease access to med. care, longterm, rehab)? @ -Patient resides at an [facility] home Was there de-escalation of care discussed even if they declined (Discuss DNR or withdrawal of care, Hospice)? DNR status @ -Yes and patient remains a full code What co-morbidities impacted this encounter? (DM, HTN, Smoking, COPD, CAD, Cancer, CVA, ARF, Chemo, Hep., AIDS, mental health diagnosis, sleep apnea, morbid obesity)? @ -Congestive heart failure, seizure disorder Was patient admitted / discharged? Hospital course, mention meds given and route, prescriptions, significant lab abnormalities, going to OR and other pertinent info. @ -Upon arrival patient seen and evaluated in room 11. Thorough history and physical exam was performed. I repeated laboratory studies. I called and spoke with Dr. Pete. Patient remains NPO. She will go to the OR at 230 for stent placement. Spoke with Dr. Rosen for her admission Undiagnosed new problem with uncertain prognosis? @ -No Drug Therapy requiring intensive monitoring for toxicity (Heparin, Nitro, Insulin, Cardizem)? @ -No Were any procedures done? @ -No Diagnosis/symptom? @ -Acute pyrexia, JOELLE, left ureteral stone, acute UTI with sepsis Acute, or Chronic, or Acute on Chronic? @ -Acute Uncomplicated (without systemic symptoms) or Complicated (systemic symptoms)? @ -Complicated Side effects of treatment? @ -Allergic reaction Exacerbation, Progression, or Severe Exacerbation? @ -No Poses a threat to life or bodily function? How? (Chest pain, [place], [place], pneumonia, PE, COPD, DKA, ARF, appy, cholecystitis, CVA, Diverticulitis, Homicidal, Suicidal, threat to staff... and all critical care pts) @ -No - Lab Data Result diagrams: 06/17/24 06:47 06/17/24 06:47 Lab Results 06/16/24 06/16/24 Range/Units 12:50 12:50 WBC 9.2 (3.8-10.6) k/uL RBC 3.58 L (3.80-5.40) m/uL Hgb 10.1 L (11.4-16.0) gm/dL Hct 30.8 L (34.0-46.0) % MCV 86.0 (80.0-100.0) fL MCH 28.3 (25.0-35.0) pg MCHC 32.8 (31.0-37.0) g/dL RDW 12.9 (11.5-15.5) % Plt Count 202 (150-450) k/uL MPV 7.4 Neutrophils % 91 % Lymphocytes % 5 % Monocytes % 3 % Eosinophils % 1 % Basophils % 0 % Neutrophils # 8.4 H (1.3-7.7) k/uL Lymphocytes # 0.5 L (1.0-4.8) k/uL Monocytes # 0.2 (0-1.0) k/uL Eosinophils # 0.1 (0-0.7) k/uL Basophils # 0.0 (0-0.2) k/uL Sodium 135 L (137-145) mmol/L Potassium 3.4 L (3.5-5.1) mmol/L Chloride 102 (98-107) mmol/L Carbon Dioxide 26 (22-30) mmol/L Anion Gap 7 mmol/L BUN 27 H (7-17) mg/dL Creatinine 1.40 H (0.52-1.04) mg/dL Est GFR (CKD-EPI)AfAm 44 (>60 ml/min/1.73 sqM) Est GFR (CKD-EPI)NonAf 38 (>60 ml/min/1.73 sqM) Glucose 134 H (74-99) mg/dL Calcium 8.0 L (8.4-10.2) mg/dL Total Bilirubin 1.0 (0.2-1.3) mg/dL AST 41 H (14-36) U/L ALT 35 H (4-34) U/L Alkaline Phosphatase 209 H (38-126) U/L Total Protein 6.7 (6.3-8.2) g/dL Albumin 3.6 (3.5-5.0) g/dL Disposition Clinical Impression: Ureteral stone with hydronephrosis, UTI (urinary tract infection), JOELLE (acute kidney injury), Pyrexia Disposition: ADMITTED IP TO THIS HOSP Condition: Serious Is patient prescribed a controlled substance at d/c from ED?: No Time of Disposition: 13:12 Decision to Admit Reason: Admit from EC Decision Date: 06/16/24 Decision Time: 13:12
[2024-06-16 13:35] LABS: ALT 35 U/L (4-34); AST 41 U/L (14-36); African American GFR (CKD) 44 (>60 ml/min/1.73 sqM); Albumin 3.6 g/dL (3.5-5.0); Alkaline Phosphatase 209 U/L (38-126); Anion Gap 7 mmol/L; Blood Urea Nitrogen 27 mg/dL (7-17); Carbon Dioxide 26 mmol/L (22-30); Chloride 102 mmol/L (98-107); Glucose 134 mg/dL (74-99); Non-African American GFR(CKD) 38 (>60 ml/min/1.73 sqM); Potassium 3.4 mmol/L (3.5-5.1); Sodium 135 mmol/L (137-145); Total Protein 6.7 g/dL (6.3-8.2)
[2024-06-16] MEDS: IV FLUID CONTINUATION 1,000 ML IV ONE (13:51)
[2024-06-16] MEDS ORDERED: ONDANSETRON 4 MG TAB PO PRN (14:18)
--- NOTE | 2024-06-16 14:24 | P.GSCN ---
History of Present Illness Consult date: 06/16/24 History of present illness: 73-year-old female transferred from [facility] with a septic left ureteral stone. The patient is mentally handicapped. She lives in a [facility] [place] [facility]. She was not doing well. She is taking the emergency room. She was evaluated completely and found to have a 7 mm left ureteral stone. She has hydronephrosis. Her urine is infected. She is pyelonephritis. She has a urinary tract infection with sepsis. She was hypotensive and tachycardic. She is sent to our emergency room where she was resuscitated. I was consult. She'll be set up for an emergent stent placement. Review of Systems ROS unobtainable: due to mental status Past Medical History Past Medical History: Heart Failure, COPD, GERD/Reflux, Hyperlipidemia, Osteoarthritis (OA), Pneumonia, Seizure Disorder Additional Past Medical History / Comment(s): Intellectual delay - lower spectrum IQ per sister and A&OX1, last seizure 07/16/2022, wheelchair bound and transfers with gait belt and 2 person assist, wears brace right foot, incontinent of urine, Dysphagia - assist with food set-up, current UTI(05/2024) cataracts, resides in her own home with 24 hour care, legal guardian- Claire Painting (sister # [phone]) History of Any Multi-Drug Resistant Organisms: None Reported Past Surgical History: Orthopedic Surgery Past Anesthesia/Blood Transfusion Reactions: Family History of Problems w/ Anesthesia Additional Past Anesthesia/Blood Transfusion Reaction / Comm: sister and her sisters daughter have "extreme" difficulty waking up after receiving morphine. pt has never received anesthesia per sister. Past Psychological History: Depression Smoking Status: Never smoker Past Alcohol Use History: None Reported Past Drug Use History: None Reported - Past Family History Mother Additional Family Medical History / Comment(s): MOther of complications from colon polyp removal Father Family Medical History: Chest Pain / Angina, Diabetes Mellitus, Hyperlipidemia, Myocardial Infarction ([place]) Medications and Allergies Home Medications Medication Instructions Recorded Confirmed Type Cetirizine HCl [Zyrtec] 10 mg PO HS@199907/10/18 06/16/24 History Eslicarbazepine Acetate [Aptiom] 600 mg PO DAILY@0807/10/18 06/16/24 History Sodium Chloride Tab 1 gm PO DAILY@79907/10/18 06/16/24 History lamoTRIgine [LaMICtal] 25 mg PO BID@07/10/18 06/16/24 History lamoTRIgine [LaMICtal] 200 mg PO BID@799,199907/10/18 06/16/24 History polyethylene glycoL 3350 [Miralax] 17 gm PO MOWE@199907/10/18 06/16/24 History Latanoprost [Latanoprost 0.005%] 1 drop BOTH EYES HS@199908/04/22 06/16/24 History Omeprazole [PriLOSEC] 20 mg PO DAILY@79908/04/22 06/16/24 History levETIRAcetam [Keppra] 1,500 mg PO DAILY@79908/04/22 06/16/24 History levETIRAcetam [Keppra] 250 mg PO HS@199908/04/22 06/16/24 History Ammonium Lactate Cream [Lac-Hydrin 1 applic TOPICAL BID@799,199902/21/24 06/16/24 History 12% Cream] Ascorbic Acid [Vitamin C] 1,000 mg PO BID@799,199902/21/24 06/16/24 History Chlorthalidone 100 mg PO DAILY@79902/21/24 06/16/24 History FLUoxetine HCL [PROzac] 20 mg PO DAILY@79902/21/24 06/16/24 History Furosemide [Lasix] 20 mg PO DAILY@79902/21/24 06/16/24 History Gummi Bear Multivitamin/Mineral 2 tab PO DAILY@79902/21/24 06/16/24 History Chew Levothyroxine Sodium [Synthroid] 25 mcg PO DAILY@79902/21/24 06/16/24 History Midazolam [Nayzilam] 1 spray NASAL ONCE PRN 02/21/24 06/16/24 History Phenyleph/Mineral Oil/Petrolat 1 applic RECTAL QID PRN 02/21/24 06/16/24 History [Preparation H Ointment] Potassium Chloride ER [K-Dur 10] 10 meq PO DAILY@79902/21/24 06/16/24 History Spironolactone [Aldactone] 50 mg PO BID@0800,199902/21/24 06/16/24 History Triamcinolone 0.1% Cream [Kenalog 1 applicatio TOPICAL BID@799,199902/21/24 06/16/24 History 0.1% Cream] Trimethoprim [Trimpex] 100 mg PO DAILY@0802/21/24 06/16/24 History Zinc Gluconate [Zinc] 50 mg PO DAILY@0802/21/24 06/16/24 History hydrOXYzine HCL [Atarax] 25 mg PO DAILY@79902/21/24 06/16/24 History levETIRAcetam [Keppra] 750 mg PO HS@199902/21/24 06/16/24 History Nystatin 100,000 Unit/gm Powd 1 applic TOPICAL BID@06/16/24 06/16/24 History [Mycostatin Powder] Ondansetron [Zofran] 4 mg PO Q8HR PRN 06/16/24 06/16/24 History Sennosides/Docusate Sodium [Senna 2 tab PO SUTUTHSA@199906/16/24 06/16/24 History Plus 8.6-50 mg Tablet] bisacodyL [Dulcolax] 10 mg RECTAL DAILY PRN 06/16/24 06/16/24 History guaiFENesin SYRUP 100MG/5ML 200 mg PO Q4H PRN 06/16/24 06/16/24 History [Robitussin] metFORMIN HCL ER [Glucophage XR] 500 mg PO DAILY@1700 06/16/24 06/16/24 History metOLazone [Zaroxolyn] 5 mg PO DAILY@0630 06/16/24 06/16/24 History Allergies Allergy/AdvReac Type Severity Reaction Status Date / Time lacosamide [From Vimpat] Allergy Unknown Verified 06/16/24 14:04 phenytoin [From Dilantin] Allergy Unknown Verified 06/16/24 14:04 sulfamethoxazole Allergy Unknown Verified 06/16/24 14:04 [From Bactrim] trimethoprim [From Bactrim] Allergy Unknown Verified 06/16/24 14:04 Surgical - Exam Vital Signs Temp Pulse Resp BP Pulse Ox 98.8 F 101 H 18 122/67 96 06/16/24 11:01 06/16/24 11:01 06/16/24 11:01 06/16/24 11:01 06/16/24 11:01 - General acutely ill. Tachycardic. well developed - Neck no masses - Respiratory normal respiratory effort - Cardiovascular tachycardic - Abdomen Abdomen: soft, tender - Neurologic minimal communication Results - Labs 06/16/24 12:50 06/16/24 12:50 Abnormal Lab Results - Last 24 Hours (Table) 06/16/24 06/16/24 Range/Units 12:50 12:50 RBC 3.58 L (3.80-5.40) m/uL Hgb 10.1 L (11.4-16.0) gm/dL Hct 30.8 L (34.0-46.0) % Neutrophils # 8.4 H (1.3-7.7) k/uL Lymphocytes # 0.5 L (1.0-4.8) k/uL Sodium 135 L (137-145) mmol/L Potassium 3.4 L (3.5-5.1) mmol/L BUN 27 H (7-17) mg/dL Creatinine 1.40 H (0.52-1.04) mg/dL Glucose 134 H (74-99) mg/dL Calcium 8.0 L (8.4-10.2) mg/dL AST 41 H (14-36) U/L ALT 35 H (4-34) U/L Alkaline Phosphatase 209 H (38-126) U/L Diabetes panel 06/16/24 Range/Units 12:50 Sodium 135 L (137-145) mmol/L Potassium 3.4 L (3.5-5.1) mmol/L Chloride 102 (98-107) mmol/L Carbon Dioxide 26 (22-30) mmol/L BUN 27 H (7-17) mg/dL Creatinine 1.40 H (0.52-1.04) mg/dL Glucose 134 H (74-99) mg/dL Calcium 8.0 L (8.4-10.2) mg/dL AST 41 H (14-36) U/L ALT 35 H (4-34) U/L Alkaline Phosphatase 209 H (38-126) U/L Total Protein 6.7 (6.3-8.2) g/dL Albumin 3.6 (3.5-5.0) g/dL Calcium panel 06/16/24 Range/Units 12:50 Calcium 8.0 L (8.4-10.2) mg/dL Albumin 3.6 (3.5-5.0) g/dL Pituitary panel 06/16/24 Range/Units 12:50 Sodium 135 L (137-145) mmol/L Potassium 3.4 L (3.5-5.1) mmol/L Chloride 102 (98-107) mmol/L Carbon Dioxide 26 (22-30) mmol/L BUN 27 H (7-17) mg/dL Creatinine 1.40 H (0.52-1.04) mg/dL Glucose 134 H (74-99) mg/dL Calcium 8.0 L (8.4-10.2) mg/dL Adrenal panel 06/16/24 Range/Units 12:50 Sodium 135 L (137-145) mmol/L Potassium 3.4 L (3.5-5.1) mmol/L Chloride 102 (98-107) mmol/L Carbon Dioxide 26 (22-30) mmol/L BUN 27 H (7-17) mg/dL Creatinine 1.40 H (0.52-1.04) mg/dL Glucose 134 H (74-99) mg/dL Calcium 8.0 L (8.4-10.2) mg/dL Total Bilirubin 1.0 (0.2-1.3) mg/dL AST 41 H (14-36) U/L ALT 35 H (4-34) U/L Alkaline Phosphatase 209 H (38-126) U/L Total Protein 6.7 (6.3-8.2) g/dL Albumin 3.6 (3.5-5.0) g/dL - Imaging CT scan - abdomen: report reviewed CT scan - pelvis: report reviewed Assessment and Plan Assessment: impression: Left ureteral calculus with obstruction, pyonephrosis left, urinary tract infection with sepsis Recommendations: The patient will require an emergent cystoscopy and stent placement. We have already started resuscitation. This been explained at length to the patient's sister who is her guardian.
[2024-06-16] MEDS ORDERED: fentaNYL (PF) 50 MCG/ML 2 ML AMP ONE (14:26)
[2024-06-16] MEDS ORDERED: MIDAZOLAM 2 MG/2 ML VIAL ONE (14:26)
[2024-06-16] MEDS ORDERED: PROPOFOL 10 MG/ML 20 ML VIAL IV ONE (14:26)
--- NOTE | 2024-06-16 15:09 | P.OP ---
Date of Procedure: 06/16/24 Preoperative Diagnosis: left ureteral calculus with obstruction, left pyelonephrosis, urinary tract infection with sepsis. Postoperative Diagnosis: same Procedure(s) Performed: cystoscopy with placement of 6 x 22 double-J catheter left Anesthesia: MAC Surgeon: Michael Pete Estimated Blood Loss (ml): 0 Pathology: none sent Condition: stable Disposition: PACU Indications for Procedure: the patient is a 73-year-old mentally handicapped female transferred from [place] with an obstructing left ureteral calculus, urinary tract infection with sepsis and pyelonephrosis Description of Procedure: patient brought operating suite. Given a sedative anesthetic. Placed lithotomy position with sterile prep and drape. Cystoscopy identifies a chronically infected as well as an acutely infected bladder with a fair amount of purulent debris. The bladder is irrigated thoroughly. Both ureteral orifices identified. The left ureteral orifice is identified no 35 wires passed by the left ureteral stone in the distal ureter up into the kidney. Over the wires passed a 6 x 22 double-J catheter that coils in the renal pelvis and in the bladder. A Monroy catheters placed. The patient is awake and returned recovery in good condition Patient will be observed in the hospital while the sepsis clears. The stone and stent will be removed at a later date.
--- NOTE | 2024-06-16 15:19 | FL ---
EXAMINATION TYPE: FL guidance operating room DATE OF EXAM: 06/16/2024 HISTORY: Fluoroscopy time Total dose area product (DAP) in uGy*m?, mGy*cm? (or similar): 0.09726 IMPRESSION: 1. Fluoroscopy time. [facility], , 06/16/2024 3:17 PM
--- NOTE | 2024-06-16 17:37 | P.HPIM ---
History of Present Illness H&P Date: 06/16/24 Chief Complaint: Vomiting fever This is a 73-year-old patient, follows with visiting physician Dr. Garrett. History is obtained by patient's medical power of attorney at law her sister Claire Winkler. Patient lives in assisted living called [facility] on house. Normally uses a wheel chair. 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 She was institutionalized at the age of 14. Used to walk initially but not able to walk. Anymore. She does talk but does not really make much sense. Chest wet diapers. For last 3 days patient started having vomiting. Fever. Decreased appetite. Became sluggish. She was sent in here from ER at [facility]. Patient did have a temperature 102.4. Was given Rocephin vancomycin and Zosyn at the hospital. Patient CT scan of the abdomen showed a left-sided ureteral stone measuring 7 mm. In the distal ureter. She is felt to be septic. Patient was taken to the OR today by Dr. Pete urologist. A double-J stent was placed on the left side. The room patient likely tolerating a supper being fed by his sister. Patient herself cannot give any meaningful history. Review of systems: Patient cannot give any as she is not really able to communicate Social history: Lives in assisted living, [facility] house. Does use a wheelchair. Sister Claire Winkler is her medical power of attorney at law. Physical examination: VITAL SIGNS: Temperature 102.4 reported. From the other hospital., 101, 18, 122 x 67, 96% 2 L upon presentation GENERAL: BMI 34.9, reclining bed eating supper. EYES: Pupils equal. Conjunctiva laly l. HEENT: External appearance of nose and ears normal, oral cavity grossly normal. NECK: JVD unable to assess; masses not palpable. HEART: First and second heart sounds are normal; no edema. LUNGS: Respiratory rate normal; clear to auscultation. ABDOMEN: Soft, nontender, liver spleen not palpable, no masses palpable. Monroy catheter with some bloody urine PSYCH: Patient may say a word here and there. Otherwise not able to communicate l. MUSCULOSKELETAL:No Clubbing/cyanosis;muscles-grossly intact. OA NEUROLOGICAL: Cranial nerves grossly intact; no facial asymmetry, power and s ensation grossly intact. LYMPHATICS: No lymph nodes palpable in the axilla and neck INVESTIGATIONS, reviewed in the clinical context: June 16, 2024: White count 9.2 hemoglobin 10.1 platelets 202 sodium 135 potassium 3.4 BUN 27 creatinine 1.40 AST [address] scan result from [facility] as above Assessment plan: -Left-sided hydronephrosis from a distal ureteral stone 7 mm. Causing acute pyelonephritis and sepsis IV ceftriaxone. IV fluids -Left ureteral stone, had a left-sided double-J stent catheter placement. Following cystoscopy. By Dr. Pete. Infected debris was obtained. Monroy catheter was placed -Childhood intellectual disability -Chronic medical debility, patient is on a wheelchair -Seizure disorder. Last seizure was in 2021. Keppra -Primary osteoarthritis Pain medication as needed -Hypothyroid Synthroid -Chronic congestive heart failure EF not known Diuretics -GERD Prilosec -Hyperlipidemia -Depression Prozac -Diabetes mellitus type 2 on oral hypoglycemic Glucophage -DNR -Medical power of attorney at law, sister, Claire W Care was discussed with the patient and sister at the bedside. Questions answered. Follow-up with urology Past Medical History Past Medical History: Heart Failure, COPD, GERD/Reflux, Hyperlipidemia, Osteoarthritis (OA), Pneumonia, Seizure Disorder Additional Past Medical History / Comment(s): Intellectual delay - lower spectrum IQ per sister and A&OX1, last seizure 07/16/2022, wheelchair bound and transfers with gait belt and 2 person assist, wears brace right foot, incontinent of urine, Dysphagia - assist with food set-up, current UTI(05/2024) cataracts, resides in her own home with 24 hour care, legal guardian- Claire Painting (sister # [phone]) History of Any Multi-Drug Resistant Organisms: None Reported Past Surgical History: Orthopedic Surgery Past Anesthesia/Blood Transfusion Reactions: Family History of Problems w/ Anesthesia Additional Past Anesthesia/Blood Transfusion Reaction / Comment(s): sister and her sisters daughter have "extreme" difficulty waking up after receiving morphine. pt has never received anesthesia per sister. Past Psychological History: Depression Smoking Status: Never smoker Past Alcohol Use History: None Reported Past Drug Use History: None Reported - Past Family History Mother Additional Family Medical History / Comment(s): MOther of complications from colon polyp removal Father Family Medical History: Chest Pain / Angina, Diabetes Mellitus, Hyperlipidemia, Myocardial Infarction (SC) Medications and Allergies Home Medications Medication Instructions Recorded Confirmed Type Cetirizine HCl [Zyrtec] 10 mg PO HS@199907/10/18 06/16/24 History Eslicarbazepine Acetate [Aptiom] 600 mg PO DAILY@0807/10/18 06/16/24 History Sodium Chloride Tab 1 gm PO DAILY@79907/10/18 06/16/24 History lamoTRIgine [LaMICtal] 25 mg PO BID@08,199907/10/18 06/16/24 History lamoTRIgine [LaMICtal] 200 mg PO BID@799,199907/10/18 06/16/24 History polyethylene glycoL 3350 [Miralax] 17 gm PO MOWE@199907/10/18 06/16/24 History Latanoprost [Latanoprost 0.005%] 1 drop BOTH EYES HS@199908/04/22 06/16/24 History Omeprazole [PriLOSEC] 20 mg PO DAILY@79908/04/22 06/16/24 History levETIRAcetam [Keppra] 1,500 mg PO DAILY@79908/04/22 06/16/24 History levETIRAcetam [Keppra] 250 mg PO HS@199908/04/22 06/16/24 History Ammonium Lactate Cream [Lac-Hydrin 1 applic TOPICAL BID@799,199902/21/24 06/16/24 History 12% Cream] Ascorbic Acid [Vitamin C] 1,000 mg PO BID@799,199902/21/24 06/16/24 History Chlorthalidone 100 mg PO DAILY@79902/21/24 06/16/24 History FLUoxetine HCL [PROzac] 20 mg PO DAILY@79902/21/24 06/16/24 History Furosemide [Lasix] 20 mg PO DAILY@79902/21/24 06/16/24 History Gummi Bear Multivitamin/Mineral 2 tab PO DAILY@79902/21/24 06/16/24 History Chew Levothyroxine Sodium [Synthroid] 25 mcg PO DAILY@79902/21/24 06/16/24 History Midazolam [Nayzilam] 1 spray NASAL ONCE PRN 02/21/24 06/16/24 History Phenyleph/Mineral Oil/Petrolat 1 applic RECTAL QID PRN 02/21/24 06/16/24 History [Preparation H Ointment] Potassium Chloride ER [K-Dur 10] 10 meq PO DAILY@0802/21/24 06/16/24 History Spironolactone [Aldactone] 50 mg PO BID@08,199902/21/24 06/16/24 History Triamcinolone 0.1% Cream [Kenalog 1 applicatio TOPICAL BID@799,199902/21/24 06/16/24 History 0.1% Cream] Trimethoprim [Trimpex] 100 mg PO DAILY@0802/21/24 06/16/24 History Zinc Gluconate [Zinc] 50 mg PO DAILY@0802/21/24 06/16/24 History hydrOXYzine HCL [Atarax] 25 mg PO DAILY@0802/21/24 06/16/24 History levETIRAcetam [Keppra] 750 mg PO HS@199902/21/24 06/16/24 History Nystatin 100,000 Unit/gm Powd 1 applic TOPICAL BID@799,199906/16/24 06/16/24 History [Mycostatin Powder] Ondansetron [Zofran] 4 mg PO Q8HR PRN 06/16/24 06/16/24 History Sennosides/Docusate Sodium [Senna 2 tab PO SUTUTHSA@199906/16/24 06/16/24 History Plus 8.6-50 mg Tablet] bisacodyL [Dulcolax] 10 mg RECTAL DAILY PRN 06/16/24 06/16/24 History guaiFENesin SYRUP 100MG/5ML 200 mg PO Q4H PRN 06/16/24 06/16/24 History [Robitussin] metFORMIN HCL ER [Glucophage XR] 500 mg PO DAILY@1700 06/16/24 06/16/24 History metOLazone [Zaroxolyn] 5 mg PO DAILY@0630 06/16/24 06/16/24 History Allergies Allergy/AdvReac Type Severity Reaction Status Date / Time lacosamide [From Vimpat] Allergy Unknown Verified 06/16/24 14:04 phenytoin [From Dilantin] Allergy Unknown Verified 06/16/24 14:04 sulfamethoxazole Allergy Unknown Verified 06/16/24 14:04 [From Bactrim] trimethoprim [From Bactrim] Allergy Unknown Verified 06/16/24 14:04 Physical Exam Vitals: Vital Signs Temp Pulse Pulse Resp BP BP Pulse Ox 06/16/24 16:10 93 16 103/55 97 06/16/24 15:55 92 16 117/60 97 06/16/24 15:40 92 16 109/56 96 06/16/24 15:25 93 16 108/59 97 06/16/24 15:10 97.3 F L 98 18 102/57 98 06/16/24 13:52 98.9 F 98 16 116/59 96 06/16/24 13:32 101 H 18 112/63 99 06/16/24 11:01 98.8 F 101 H 18 122/67 96 Intake and Output 06/16/24 06/16/24 06/16/24 06:59 14:59 22:59 Intake Total 350 100 Output Total 0 Balance 350 100 Intake: IV 350 100 Output: Estimated Blood Loss 0 Other: Voiding Method External Catheter Weight 95.254 kg 95.254 kg Results CBC & Chem 7: 06/16/24 12:50 06/16/24 12:50 Labs: Abnormal Lab Results - Last 24 Hours (Table) 06/16/24 06/16/24 Range/Units 12:50 12:50 RBC 3.58 L (3.80-5.40) m/uL Hgb 10.1 L (11.4-16.0) gm/dL Hct 30.8 L (34.0-46.0) % Neutrophils # 8.4 H (1.3-7.7) k/uL Lymphocytes # 0.5 L (1.0-4.8) k/uL Sodium 135 L (137-145) mmol/L Potassium 3.4 L (3.5-5.1) mmol/L BUN 27 H (7-17) mg/dL Creatinine 1.40 H (0.52-1.04) mg/dL Glucose 134 H (74-99) mg/dL Calcium 8.0 L (8.4-10.2) mg/dL AST 41 H (14-36) U/L ALT 35 H (4-34) U/L Alkaline Phosphatase 209 H (38-126) U/L Thrombosis Risk Factor Assmnt - Choose All That Apply Each Factor Represents 1 point: Minor surgery planned Each Risk Factor Represents 2 Points: Age 61-74 years, Patient confined to bed Thrombosis Risk Factor Assessment Total Risk Factor Score: 5 Thrombosis Risk Factor Assessment Level: High Risk
[2024-06-16] MEDS: lamoTRIgine 100 MG TAB PO SCH (19:57)
[2024-06-16] MEDS: lamoTRIgine 25 MG TAB PO SCH (19:57)
[2024-06-16] MEDS: NYSTATIN 100,000 UNIT/GM POWD 15 GM TOPICAL SCH (19:57)
[2024-06-16] MEDS: AMMONIUM LACTATE 12% CREAM 140 GM TUBE TOPICAL SCH (19:57)
[2024-06-16] MEDS: LATANOPROST 0.005% OPHTH DROPS 2.5 ML BTL BOTH EYES SCH (19:57)
[2024-06-16] MEDS: ASCORBIC ACID 500 MG TAB PO SCH (19:58)
[2024-06-16] MEDS: levETIRAcetam 250 MG TAB PO SCH (20:54)
[2024-06-17 06:46] LABS: Glucose,Whole Blood 193 mg/dL (70-110)
[2024-06-17] MEDS: metFORMIN 500 MG TAB PO SCH (06:52)
[2024-06-17 07:25] LABS: Basophils % (A) 0 %; Eosinophils # (A) 0.3 k/uL (0-0.7); Eosinophils % (A) 4 %; HCT 28.6 % (34.0-46.0); HGB 9.9 gm/dL (11.4-16.0); Lymphocytes % (A) 14 %; MCH 28.9 pg (25.0-35.0); MCHC 34.5 g/dL (31.0-37.0); MCV 83.9 fL (80.0-100.0); Mean Platelet Volume 8.2; Monocytes # (A) 0.5 k/uL (0-1.0); Monocytes % (A) 7 %; Neutrophils # (A) 5.4 k/uL (1.3-7.7); Neutrophils % (A) 71 %; Platelet Count 195 k/uL (150-450); RBC 3.41 m/uL (3.80-5.40); RDW 13.1 % (11.5-15.5); WBC 7.6 k/uL (3.8-10.6)
[2024-06-17 07:26] LABS: African American GFR (CKD) 59 (>60 ml/min/1.73 sqM); Anion Gap 5 mmol/L; Blood Urea Nitrogen 20 mg/dL (7-17); Calcium 8.2 mg/dL (8.4-10.2); Carbon Dioxide 33 mmol/L (22-30); Chloride 99 mmol/L (98-107); Glucose 162 mg/dL (74-99); Non-African American GFR(CKD) 51 (>60 ml/min/1.73 sqM); Potassium 3.3 mmol/L (3.5-5.1); Sodium 137 mmol/L (137-145)
[2024-06-17 08:18] VITALS: TEMP 98.4
[2024-06-17] MEDS: PANTOPRAZOLE 40 MG TABLET PO SCH (08:19)
[2024-06-17] MEDS: hydrOXYzine HCL 25 MG TAB PO SCH (08:19)
[2024-06-17] MEDS: SODIUM CHLORIDE TAB 1 GM TAB PO SCH (08:19)
[2024-06-17] MEDS: FLUoxetine HCL 20 MG CAP PO SCH (08:19)
[2024-06-17] MEDS: LEVOTHYROXINE 25 MCG TAB PO SCH (08:20)
[2024-06-17] MEDS: ZINC SULFATE 220 MG CAP PO SCH (08:20)
[2024-06-17] MEDS: ESLICARBAZEPINE ACETATE 600 MG PO SCH (08:36)
[2024-06-17] MEDS ORDERED: cefTRIAXone IN SWFI 1,000 MG/10 ML SYRINGE IVP SCH (09:00)
[2024-06-17 11:23] LABS: Glucose,Whole Blood 223 mg/dL (70-110)
[2024-06-17 12:09] VITALS: BP 104/63; PULSE 88; RESP 18
--- NOTE | 2024-06-17 14:00 | P.PN ---
Subjective Progress Note Date: 06/17/24 73-year-old handicapped female is in the hospital for an obstructingleft ureteral stone, urinary tract infection with sepsis and stent placement placed yesterday. She is afebrile and feeling better. Objective - Vital Signs Vital signs: Vital Signs Temp 98.4 F 06/17/24 08:00 Pulse 88 06/17/24 12:00 Resp 18 06/17/24 12:00 BP 104/63 06/17/24 12:00 Pulse Ox 98 06/17/24 12:00 FiO2 Intake & Output 06/16/24 06/17/24 06/17/24 18:59 06:59 18:59 Intake Total 568 564 Output Total 0 950 600 Balance 568 -950 -36 Weight 95.254 kg Intake: IV 450 Oral 118 564 Output: Urine 950 600 Estimated Blood Loss 0 Other: Voiding Method External Catheter Indwelling Catheter Indwelling Catheter - Labs CBC & Chem 7: 06/17/24 06:47 06/17/24 06:47 Labs: Abnormal Lab Results - Last 24 Hours (Table) 06/17/24 06/17/24 06/17/24 Range/Units 06:44 06:47 06:47 RBC 3.41 L (3.80-5.40) m/uL Hgb 9.9 L (11.4-16.0) gm/dL Hct 28.6 L (34.0-46.0) % Potassium 3.3 L (3.5-5.1) mmol/L Carbon Dioxide 33 H (22-30) mmol/L BUN 20 H (7-17) mg/dL Creatinine 1.09 H (0.52-1.04) mg/dL Glucose 162 H (74-99) mg/dL POC Glucose (mg/dL) 193 H (70-110) mg/dL Calcium 8.2 L (8.4-10.2) mg/dL 06/17/24 Range/Units 11:16 RBC (3.80-5.40) m/uL Hgb (11.4-16.0) gm/dL Hct (34.0-46.0) % Potassium (3.5-5.1) mmol/L Carbon Dioxide (22-30) mmol/L BUN (7-17) mg/dL Creatinine (0.52-1.04) mg/dL Glucose (74-99) mg/dL POC Glucose (mg/dL) 223 H (70-110) mg/dL Calcium (8.4-10.2) mg/dL Assessment and Plan Assessment: impression: Left ureteral calculus with obstruction and secondary pyelonephrosis, urinary tract infection with sepsis, mental handicap Recommendations: Once the cultures back then she can place on oral antibiotics and discharge back to the [facility] in [place]. She'll need a cystoscopy stent and stone removal at a later date.
[2024-06-17 16:11] LABS: Glucose,Whole Blood 206 mg/dL (70-110)
--- NOTE | 2024-06-17 20:48 | P.DS ---
Providers Date of admission: 06/16/24 13:12 Expected date of discharge: 06/17/24 Attending physician: Angus Rosen Consults: 06/16/24 13:12 Consult Physician Urgent Consulting Provider: Michael Pete Consult Reason/Comments: left ureteral stone Do you want consulting provider notified?: Yes Primary care physician: Rolo [facility] Course: Chief Complaint: Vomiting fever This is a 73-year-old patient, follows with visiting physician Dr. Garrett. History is obtained by patient's medical power of personal injury attorney her sister Claire Winkler. Patient lives in assisted living called [facility] on house. Normally uses a wheelchair. 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 She was institutionalized at the age of 14. Used to walk initially but not able to walk. Anymore. She does talk but does not really make much sense. Chest wet diapers. For last 3 days patient started having vomiting. Fever. Decreased appetite. Became sluggish. She was sent in here from ER at [facility]. Patient did have a temperature 102.4. Was given Rocephin vancomycin and Zosyn at the hospital. Patient CT scan of the abdomen showed a left-sided ureteral stone measuring 7 mm. In the distal ureter. She is felt to be septic. Patient was taken to the OR today by Dr. Pete urologist. A double-J stent was placed on the left side. The room patient likely tolerating a supper being fed by his sister. Patient herself cannot give any meaningful history. June 17: Patient doing well. Tolerating diet. No fever. Will follow-up with Dr. Pete outpatient. Complete 7 more days of Ceftin. [Patient is Lasix chlorthalidone Aldactone have been all discontinued.] Patient to be continued on metolazone. Fluid restriction 1800 cc. Discussion and discharge planning more than 35 minutes Social history: Lives in assisted living, [facility] [facility] house. Does use a wheelchair. Sister Claire Winkler is her medical power of personal injury attorney. Physical examination: VITAL SIGNS: 98.4, 88, 18, 104 x 63, 98% 2 L GENERAL: BMI 34.9, reclining bed comfortable EYES: Pupils equal. Conjunctiva laly l. HEENT: External appearance of nose and ears normal, oral cavity grossly normal. NECK: JVD unable to assess; masses not palpable. HEART: First and second heart sounds are normal; no edema. LUNGS: Respiratory rate normal; clear to auscultation. ABDOMEN: Soft, nontender, liver spleen not palpable, no masses palpable. Monroy catheter with some bloody urine PSYCH: Patient may say a word here and there. Otherwise not able to communicate l. MUSCULOSKELETAL:No Clubbing/cyanosis;muscles-grossly intact. OA INVESTIGATIONS, reviewed in the clinical context: June 17: White count 7.6 hemoglobin 9.9 platelets 195 potassium 3.3 BUN 20 c reatinine 1.09 June 16, 2024: White count 9.2 hemoglobin 10.1 platelets 202 sodium 135 potassium 3.4 BUN 27 creatinine 1.40 AST [address] scan result from [facility] as above Assessment plan: -Left-sided hydronephrosis from a distal ureteral stone 7 mm. Causing acute pyelonephritis and sepsis: Better IV ceftriaxone. IV fluids. DC on Ceftin 5 mg twice daily for 7 days -Left ureteral stone, had a left-sided double-J stent catheter placement. Following cystoscopy. By Dr. Pete. Infected debris was obtained. Monroy catheter was placed Follow-up with Dr. Pete outpatient -Childhood intellectual disability -Chronic medical debility, patient is on a wheelchair -Seizure disorder. Last seizure was in 2021. Keppra -Primary osteoarthritis Pain medication as needed -Hypothyroid Synthroid -Acute kidney injury ATN from sepsis Admission creatinine 1.4 down to 1.09 -Chronic congestive heart failure EF not known Diuretics -GERD Prilosec -Hyperlipidemia -Depression Prozac -Diabetes mellitus type 2 on oral hypoglycemic Glucophage -DNR -Medical power of personal injury attorney, sister, Claire Winkler Disposition: Assisted living Labs: CBC BMP 5 days Past Medical History Past Medical History: Heart Failure, COPD, GERD/Reflux, Hyperlipidemia, Osteoarthritis (OA), Pneumonia, Seizure Disorder Additional Past Medical History / Comment(s): Intellectual delay - lower spectrum IQ per sister and A&OX1, last seizure 07/16/2022, wheelchair bound and transfers with gait belt and 2 person assist, wears brace right foot, incontinent of urine, Dysphagia - assist with food set-up, current UTI(05/2024) cataracts, resides in her own home with 24 hour care, legal guardian- Claire Painting (sister # [phone]) History of Any Multi-Drug Resistant Organisms: None Reported Past Surgical History: Orthopedic Surgery Past Anesthesia/Blood Transfusion Reactions: Family History of Problems w/ Anesthesia Additional Past Anesthesia/Blood Transfusion Reaction / Comment(s): sister and her sisters daughter have "extreme" difficulty waking up after receiving morphine. pt has never received anesthesia per sister. Past Psychological History: Depression Smoking Status: Never smoker Past Alcohol Use History: None Reported Past Drug Use History: None Reported Plan - Discharge Summary New Discharge Prescriptions: New cefUROXime axetiL [Ceftin] 500 mg PO BID #14 tab Continue Cetirizine HCl [Zyrtec] 10 mg PO HS@1999 Sodium Chloride Tab 1 gm PO DAILY@0800 polyethylene glycoL 3350 [Miralax] 17 gm PO MOWE@1999 lamoTRIgine [LaMICtal] 25 mg PO BID@0800,1999 lamoTRIgine [LaMICtal] 200 mg PO BID@0800,1999 Eslicarbazepine Acetate [Aptiom] 600 mg PO DAILY@0800 levETIRAcetam [Keppra] 250 mg PO HS@1999 Omeprazole [PriLOSEC] 20 mg PO DAILY@0800 hydrOXYzine HCL [Atarax] 25 mg PO DAILY@0800 Gummi Bear Multivitamin/Mineral Chew 2 tab PO DAILY@0800 FLUoxetine HCL [PROzac] 20 mg PO DAILY@0800 Phenyleph/Mineral Oil/Petrolat [Preparation H Ointment] 1 applic RECTAL QID PRN PRN Reason: Hemorrhoids Midazolam [Nayzilam] 1 spray NASAL ONCE PRN PRN Reason: Seizures Levothyroxine Sodium [Synthroid] 25 mcg PO DAILY@0800 Triamcinolone 0.1% Cream [Kenalog 0.1% Cream] 1 applicatio TOPICAL BID@0800,1999 Ammonium Lactate Cream [Lac-Hydrin 12% Cream] 1 applic TOPICAL BID@0800,1999 guaiFENesin SYRUP 100MG/5ML [Robitussin] 200 mg PO Q4H PRN PRN Reason: Cough bisacodyL [Dulcolax] 10 mg RECTAL DAILY PRN PRN Reason: NO BM IN 4 DAYS Nystatin 100,000 Unit/gm Powd [Mycostatin Powder] 1 applic TOPICAL BID@08,1999 Sennosides/Docusate Sodium [Senna Plus 8.6-50 mg Tablet] 2 tab PO SUTUTHSA@2 000 levETIRAcetam [Keppra] 1,500 mg PO DAILY@0800 Latanoprost [Latanoprost 0.005%] 1 drop BOTH EYES HS@1999 Ascorbic Acid [Vitamin C] 1,000 mg PO BID@08,1999 Potassium Chloride ER [K-Dur 10] 10 meq PO DAILY@0800 levETIRAcetam [Keppra] 750 mg PO HS@1999 Ondansetron [Zofran] 4 mg PO Q8HR PRN PRN Reason: Nausea And Vomiting metOLazone [Zaroxolyn] 5 mg PO DAILY@0630 metFORMIN HCL ER [Glucophage XR] 500 mg PO DAILY@1700 Discontinued Furosemide [Lasix] 20 mg PO DAILY@0800 Chlorthalidone 100 mg PO DAILY@0800 Zinc Gluconate [Zinc] 50 mg PO DAILY@0800 Spironolactone [Aldactone] 50 mg PO BID@08,1999 Trimethoprim [Trimpex] 100 mg PO DAILY@0800 Discharge Medication List Cetirizine HCl [Zyrtec] 10 mg PO HS@199907/10/18 [History] Eslicarbazepine Acetate [Aptiom] 600 mg PO DAILY@0800 07/10/18 [History] Sodium Chloride Tab 1 gm PO DAILY@0800 07/10/18 [History] lamoTRIgine [LaMICtal] 25 mg PO BID@08,199907/10/18 [History] lamoTRIgine [LaMICtal] 200 mg PO BID@08,199907/10/18 [History] polyethylene glycoL 3350 [Miralax] 17 gm PO MOWE@199907/10/18 [History] Latanoprost [Latanoprost 0.005%] 1 drop BOTH EYES HS@199908/04/22 [History] Omeprazole [PriLOSEC] 20 mg PO DAILY@0800 08/04/22 [History] levETIRAcetam [Keppra] 1,500 mg PO DAILY@0800 08/04/22 [History] levETIRAcetam [Keppra] 250 mg PO HS@199908/04/22 [History] Ammonium Lactate Cream [Lac-Hydrin 12% Cream] 1 applic TOPICAL BID@0800,199902/21/24 [History] Ascorbic Acid [Vitamin C] 1,000 mg PO BID@799,199902/21/24 [History] FLUoxetine HCL [PROzac] 20 mg PO DAILY@79902/21/24 [History] Gummi Bear Multivitamin/Mineral Chew 2 tab PO DAILY@79902/21/24 [History] Levothyroxine Sodium [Synthroid] 25 mcg PO DAILY@79902/21/24 [History] Midazolam [Nayzilam] 1 spray NASAL ONCE PRN 02/21/24 [History] Phenyleph/Mineral Oil/Petrolat [Preparation H Ointment] 1 applic RECTAL QID PRN 02/21/24 [History] Potassium Chloride ER [K-Dur 10] 10 meq PO DAILY@79902/21/24 [History] Triamcinolone 0.1% Cream [Kenalog 0.1% Cream] 1 applicatio TOPICAL BID@799,199902/21/24 [History] hydrOXYzine HCL [Atarax] 25 mg PO DAILY@79902/21/24 [History] levETIRAcetam [Keppra] 750 mg PO HS@199902/21/24 [History] Nystatin 100,000 Unit/gm Powd [Mycostatin Powder] 1 applic TOPICAL BID@06/16/24 [History] Ondansetron [Zofran] 4 mg PO Q8HR PRN 06/16/24 [History] Sennosides/Docusate Sodium [Senna Plus 8.6-50 mg Tablet] 2 tab PO SUTUTHSA@199906/16/24 [History] bisacodyL [Dulcolax] 10 mg RECTAL DAILY PRN 06/16/24 [History] guaiFENesin SYRUP 100MG/5ML [Robitussin] 200 mg PO Q4H PRN 06/16/24 [History] metFORMIN HCL ER [Glucophage XR] 500 mg PO DAILY@17006/16/24 [History] metOLazone [Zaroxolyn] 5 mg PO DAILY@0630 06/16/24 [History] cefUROXime axetiL [Ceftin] 500 mg PO BID #14 tab 06/17/24 [Rx] Follow up Appointment(s)/Referral(s): Rolo Garrett MD [Primary Care Provider] - 1-2 days Michael Pete MD [STAFF PHYSICIAN] - 2 Weeks (Please make a follow up appointment in 2-[address] Pete to address the stone) Patient Instructions/Handouts: Ureteral Stones (DC), Ureteral Stent Placement (DC) Activity/Diet/Wound Care/Special Instructions: fluid restrict 1800 cc/day Discharge Disposition: HOME SELF-CARE
== END 2024-06-17 18:32 | disposition home or self-care (01) | DRG 854 ==
LOC: EC 10:57 → 5NMEDONC 13:12 → 3SCARD 13:33
PROVIDERS: ADMIT Hospitalist; ATTEND Hospitalist
PROC: 0T778DZ Dilation of Left Ureter with Intraluminal Device, Via Natural or Artificial Opening Endoscopic (ICD-10-PCS; principal; 2024-06-16 17:30)
DX: A41.9 Sepsis, unspecified organism (principal); N10 Acute pyelonephritis; N11.1 Chronic obstructive pyelonephritis; N17.9 Acute kidney failure, unspecified; Z66 Do not resuscitate; Z99.81 Dependence on supplemental oxygen; I50.9 Heart failure, unspecified; E11.9 Type 2 diabetes mellitus without complications; E03.9 Hypothyroidism, unspecified; J44.9 Chronic obstructive pulmonary disease, unspecified; F32.A Depression, unspecified; F79 Unspecified intellectual disabilities; M19.91 Primary osteoarthritis, unspecified site; K21.9 Gastro-esophageal reflux disease without esophagitis; E78.5 Hyperlipidemia, unspecified; Z99.3 Dependence on wheelchair; Z79.84 Long term (current) use of oral hypoglycemic drugs; Z79.899 Other long term (current) drug therapy; Z79.890 Hormone replacement therapy; Z86.69 Personal history of other diseases of the nervous system and sense organs
CPT/HCPCS: 36415; 80048; 80053; 85025; 99285

== ENCOUNTER 2024-07-05 09:29 | Day surgery (SDC) | payer MEDICARE, OTHER ==
--- NOTE | 2024-07-04 18:18 | P.GSHP ---
History of Present Illness H&P Date: 07/04/24 73 yo mentally handicapped female who recently had a uti with sepsis, an obstructing left ureteral stone with secondary pyonephrosis requiring a left double j catheter. Her infection has been cleared. She now comes for formal left ureteroscopy with laser lithotripsy, stone and probable stent removal. the risks and complications have been explained to her guardian. - Constitutional Constitutional: Denies chills, Denies fever - EENT Eyes: denies blurred vision, denies pain Ears, nose, mouth and throat: Denies headache, Denies sore throat - Cardiovascular Cardiovascular: Denies chest pain, Denies shortness of breath - Respiratory Respiratory: Denies cough, Denies 7 - Gastrointestinal Gastrointestinal: Denies abdominal pain, Denies diarrhea, Denies nausea, Denies vomiting - Genitourinary (Female) Genitourinary: Denies dysuria, Denies hematuria - Genitourinary (Male) Genitourinary: Denies dysuria, Denies hematuria - Musculoskeletal Musculoskeletal: Denies myalgias - Integumentary Integumentary: Denies pruritus, Denies rash - Neurological Neurological: Denies numbness, Denies weakness - Psychiatric Psychiatric: Denies anxiety, Denies depression - Endocrine Endocrine: Denies fatigue, Denies weight change Past Medical History Past Medical History: Heart Failure, COPD, Diabetes Mellitus, GERD/Reflux, Hyperlipidemia, Osteoarthritis (OA), Pneumonia, Seizure Disorder Additional Past Medical History / Comment(s): Intellectual delay - lower spectrum IQ per sister and A&OX1-has difficulty with speech,able to understand simple commands, Hx of seizures(body stiffness and stares)-last 10--24, wheelchair bound and transfers with gait belt and 2 person assist, wears brace right foot, incontinent of urine,needs asst w/ eating and assistance with food set-up, current UTI(05/2024) cataracts, resides at [facility]- with 24 hour care, legal guardian- Claire Painting (sister # [phone]),covid infection 2022 History of Any Multi-Drug Resistant Organisms: None Reported Past Surgical History: Orthopedic Surgery Additional Past Surgical History / Comment(s): left ureter stent placed,cystoscopies Past Anesthesia/Blood Transfusion Reactions: Family History of Problems w/ Anesthesia Additional Past Anesthesia/Blood Transfusion Reaction / Comment(s): sister and her sisters daughter have "extreme" difficulty waking up after receiving morphine. pt has never received anesthesia per sister. Past Psychological History: Depression Additional Psychological History / Comment(s): intellectual delay Smoking Status: Never smoker Past Alcohol Use History: None Reported Past Drug Use History: None Reported - Past Family History Mother Additional Family Medical History / Comment(s): MOther of complications from colon polyp removal Father Family Medical History: Chest Pain / Angina, Diabetes Mellitus, Hyperlipidemia, Myocardial Infarction (AR) Medications and Allergies Home Medications Medication Instructions Recorded Confirmed Type Cetirizine HCl [Zyrtec] 10 mg PO HS@199907/10/18 06/30/24 History Eslicarbazepine Acetate [Aptiom] 600 mg PO DAILY@79907/10/18 06/30/24 History Sodium Chloride Tab 1 gm PO DAILY@79907/10/18 06/30/24 History lamoTRIgine [LaMICtal] 225 mg PO BID@07/10/18 06/30/24 History Latanoprost [Latanoprost 0.005%] 1 drop BOTH EYES HS@199908/04/22 06/30/24 History Omeprazole [PriLOSEC] 20 mg PO BID 08/04/22 06/30/24 History levETIRAcetam [Keppra] 1,500 mg PO DAILY@79908/04/22 06/30/24 History Ascorbic Acid [Vitamin C] 1,000 mg PO BID@799,199902/21/24 06/30/24 History FLUoxetine HCL [PROzac] 20 mg PO DAILY@79902/21/24 06/30/24 History Gummi Bear Multivitamin/Mineral 2 tab PO DAILY@79902/21/24 06/30/24 History Chew Levothyroxine Sodium [Synthroid] 25 mcg PO DAILY@79902/21/24 06/30/24 History Midazolam [Nayzilam] 1 spray NASAL ONCE PRN 02/21/24 06/30/24 History Phenyleph/Mineral Oil/Petrolat 1 applic RECTAL QID PRN 02/21/24 06/30/24 History [Preparation H Ointment] Potassium Chloride ER [K-Dur 10] 10 meq PO DAILY@0800 02/21/24 06/30/24 History Triamcinolone 0.1% Cream [Kenalog 1 applicatio TOPICAL BID@02/21/24 06/30/24 History 0.1% Cream] hydrOXYzine HCL [Atarax] 25 mg PO DAILY@0802/21/24 06/30/24 History levETIRAcetam [Keppra] 1,000 mg PO HS@199902/21/24 06/30/24 History Nystatin 100,000 Unit/gm Powd 1 applic TOPICAL BID@06/16/24 06/30/24 History [Mycostatin Powder] Ondansetron [Zofran] 4 mg PO Q8HR PRN 06/16/24 06/30/24 History bisacodyL [Dulcolax] 10 mg RECTAL DAILY PRN 06/16/24 06/30/24 History guaiFENesin SYRUP 100MG/5ML 200 mg PO Q4H PRN 06/16/24 06/30/24 History [Robitussin] metFORMIN HCL ER [Glucophage XR] 500 mg PO DAILY@1700 06/16/24 06/30/24 History metOLazone [Zaroxolyn] 5 mg PO DAILY@0630 06/16/24 06/30/24 History Ammonium Lactate Lotion 1 applic TOPICAL BID 06/30/24 06/30/24 History [Lac-Hydrin 12% Lotion] Chlorthalidone 100 mg PO QAM 06/30/24 06/30/24 History Mupirocin 2% Oint [Bactroban 2% 1 dose TOPICAL BID 06/30/24 06/30/24 History Oint] Allergies Allergy/AdvReac Type Severity Reaction Status Date / Time lacosamide [From Vimpat] Allergy Unknown Verified 06/30/24 14:08 phenytoin [From Dilantin] Allergy Unknown Verified 06/30/24 14:08 sulfamethoxazole Allergy Unknown Verified 06/30/24 14:08 [From Bactrim] trimethoprim [From Bactrim] Allergy Unknown Verified 06/30/24 14:08 Surgical - Exam - General well developed, well nourished, no distress - Eyes normal ocular movement, no icteric - ENT no hearing loss, no congestion - Neck no masses, trachea midline - Respiratory normal respiratory effort, clear to auscultation - Abdomen Abdomen: soft, non tender, no guarding, no rigid, no rebound - Integumentary no rash, no abnormal pigmentation - Neurologic no disoriented, no combative - Psychiatric oriented to person, memory intact Results - Imaging Abdominal x-ray: report reviewed, image reviewed Assessment and Plan Assessment: Impression: left ureteral stone , sp stent placement to relieve the pyonephrosis Plan: cysto eith left ureteroscopy and laser lithotripsy
[~2024-07-05 09:29] MED LIST changes: -AMPICILLIN 1,000 MG in SODIUM CHLORIDE 0.9% 50 ML IVPB PRN; -DEXAMETHASONE SOD PHOSPHATE 4 MG/ML 1 ML VIAL IV ONE; -GENTAMICIN 100 MG in SODIUM CHLORIDE 0.9% 100 ML IVPB PRN; -LACTATED RINGERS 1,000 ML IV SCH; -MIDAZOLAM 2 MG/2 ML VIAL IV PRN; -ONDANSETRON 4 MG/2 ML VIAL IVP ONE
[2024-07-05] MEDS: IV FLUID CONTINUATION 1,000 ML IV ONE (10:31)
[2024-07-05] MEDS ORDERED: LIDOCAINE 1% INJ 10MG/ML (20 ML MDV) ONE (10:40)
[2024-07-05] MEDS ORDERED: PROPOFOL 10 MG/ML 20 ML VIAL IV ONE (10:40)
[2024-07-05] MEDS ORDERED: fentaNYL (PF) 50 MCG/ML 2 ML AMP ONE (10:40)
[2024-07-05] MEDS ORDERED: MIDAZOLAM 2 MG/2 ML VIAL ONE (10:40)
[2024-07-05 10:42] LABS: Glucose,Whole Blood 125 mg/dL (70-110)
[2024-07-05] MEDS: ONDANSETRON 4 MG/2 ML VIAL IVP ONE (10:42)
[2024-07-05] MEDS: LACTATED RINGERS 1,000 ML IV SCH (10:42)
[2024-07-05] MEDS: DEXAMETHASONE SOD PHOSPHATE 4 MG/ML 1 ML VIAL IV ONE (10:42)
[2024-07-05] MEDS: AMPICILLIN 1,000 MG in SODIUM CHLORIDE 0.9% 50 ML IVPB PRN (10:45)
[2024-07-05] MEDS: GENTAMICIN 100 MG in SODIUM CHLORIDE 0.9% 100 ML IVPB PRN (10:45)
--- NOTE | 2024-07-05 10:46 | XR ---
EXAMINATION TYPE: XR KUB DATE OF EXAM: 07/05/2024 COMPARISON: None CLINICAL INDICATION: Female, 73 years old with history of kidney stones, DOS 11--24; TECHNIQUE: XR KUB views of the abdomen. FINDINGS: The osseous structures are intact. The bowel gas pattern is nonspecific. There is a left-sided doubl e-J ureteral stent which appears in good position. Bilateral hip arthropathy and degenerative change of the spine. Question punctate calcification near the distal margin of the stent just proximal to th e cope loop measuring 1 mm. Technique limits assessment of the renal outlines for calcifications. Jackelin ssly no sizable calcification seen. IMPRESSION: 1. Double-J ureteral stent appears in good position. Tiny punctate calcification near the distal alize in of the ureteral stent measuring 1 to 2 mm just proximal to the cope loop. [facility], , 07/05/2024 10:44 AM
[2024-07-05] MEDS: IOPAMIDOL-370 100ML BTL MISCELLANE ONE (11:07)
--- NOTE | 2024-07-05 11:39 | P.OP ---
Date of Procedure: 07/05/24 Preoperative Diagnosis: left ureteral calculus status post stent placement Postoperative Diagnosis: same Procedure(s) Performed: cystoscopy, removal of left ureteral catheter, left ureteroscopy with stone basketing Anesthesia: GUICHO Surgeon: Michael Pete Estimated Blood Loss (ml): 0 Pathology: other (stone) Condition: stable Disposition: PACU Indications for Procedure: patient is 73 years old, she's mentally handicapped, he recently was in the hospital for an obstructing ureteral stone, urinary tract infection and left pyelonephrosis. A double-J catheter was placed as well as antibiotics. She now comes for stone and stent removal Description of Procedure: patient brought operating suite. Given a general anesthetic. Placed lithotomy position with a sterile prep and drape. Cystoscopy is performed. Foroblique lens 21-Fijian sheath. The patient has a urethral carbuncle. The bladder is intubated. His chronic cystitis. The left ureteral orifice is identified with the stent and the stent was pulled the urethral meatus. I then pass an 035 wire through the stent up into the left kidney. Then pass a semirigid ureteroscope into the ureter. Some edema where a stone may have been previously. Pass a ureteroscope up to the renal pelvis and do not identify any stone. I then over the working wire pass a 70-72-Ogrkdz reentry sheath up into the left renal pelvis. The inner sheath is removed I passed the flexible ureteroscope up into the kidney. There are 2 struvite stones probably 2-3 mm each identified and basketed. I irrigate thoroughly the collecting system of any debris. Throughout the left collecting system and see no remaining stone. Pullout ureteroscopy identifies no stone or significant edema. The bladder is drained the patient is awakened and returned recovery room good condition. She'll be discharged home upon recovery.
[2024-07-05 11:41] VITALS: TEMP 98.2
[2024-07-05 11:53] LABS: Glucose,Whole Blood 134 mg/dL (70-110)
--- NOTE | 2024-07-05 12:36 | FL ---
EXAMINATION TYPE: FL guidance operating room DATE OF EXAM: 07/05/2024 HISTORY: Fluoroscopy time Total dose area product (DAP) in uGy*m?, mGy*cm? (or similar): 0.8279 IMPRESSION: 1. Fluoroscopy time. [facility], , 07/05/2024 12:34 PM
[2024-07-05 13:23] VITALS: RESP 18
[2024-07-05 14:19] VITALS: BP 118/71; PULSE 93
== END 2024-07-05 14:14 ==
LOC: OR 09:29
PROVIDERS: ATTEND Urology
DX: N20.1 Calculus of ureter (principal); E11.9 Type 2 diabetes mellitus without complications; J44.9 Chronic obstructive pulmonary disease, unspecified; E78.5 Hyperlipidemia, unspecified; K21.9 Gastro-esophageal reflux disease without esophagitis; M19.90 Unspecified osteoarthritis, unspecified site; G40.909 Epilepsy, unspecified, not intractable, without status epilepticus; I50.9 Heart failure, unspecified; Z87.440 Personal history of urinary (tract) infections; Z79.899 Other long term (current) drug therapy; Z79.890 Hormone replacement therapy; Z79.84 Long term (current) use of oral hypoglycemic drugs; Z88.2 Allergy status to sulfonamides; Z88.8 Allergy status to other drugs, medicaments and biological substances
CPT/HCPCS: 82365; 74018; 52352; J1100; J2405; J1580; J0290; Q9967